=== PATIENT | female | born 1945 | race Caucasian/White ===

== ENCOUNTER 2016-04-07 08:00 | Outpatient (CLI) | payer MEDICARE, BC | END 2016-04-07 08:01 | disposition home or self-care (01) | DX: N28.9 Disorder of kidney and ureter, unspecified (principal); I10 Essential (primary) hypertension ==

== ENCOUNTER 2016-04-13 09:30 | Outpatient (CLI) | payer MEDICARE, BC | END 2016-04-13 23:59 | DX: R39.15 Urgency of urination (principal) ==

== ENCOUNTER 2016-06-19 08:57 | Outpatient (CLI) | payer MEDICARE, BC | END 2016-06-19 08:58 | disposition home or self-care (01) | DX: E11.9 Type 2 diabetes mellitus without complications (principal); D64.9 Anemia, unspecified ==

== ENCOUNTER 2017-03-06 07:13 | Day surgery (SDC) | payer MEDICARE, BC ==
[2017-03-06] MEDS ORDERED: LACTATED RINGERS 1,000 ML IV ONE (07:35)
[2017-03-06] MEDS ORDERED: fentaNYL 100 MCG/2 ML VIAL IVP ONE (08:30)
[2017-03-06] MEDS ORDERED: MIDAZOLAM 2 MG/2 ML VIAL IVP ONE (08:30)
[2017-03-06 09:26] VITALS: BP 103/44
== END 2017-03-06 07:14 | disposition home or self-care (01) ==
LOC: SDS 07:13
PROVIDERS: ATTEND Surgery
PROC: 0DBM8ZX Excision of Descending Colon, Via Natural or Artificial Opening Endoscopic, Diagnostic (ICD-10-PCS; principal; 2017-03-06 08:15)
DX: Z12.11 Encounter for screening for malignant neoplasm of colon (principal); D12.4 Benign neoplasm of descending colon; K51.40 Inflammatory polyps of colon without complications; I10 Essential (primary) hypertension; E11.9 Type 2 diabetes mellitus without complications; G47.30 Sleep apnea, unspecified; Z79.82 Long term (current) use of aspirin
CPT/HCPCS: 45380; J7120

== ENCOUNTER 2017-09-24 08:54 | Outpatient (CLI) | payer MEDICARE, BC ==
[2017-09-24 17:26] LABS: HGB - HEMOGLOBIN 11.9 g/dL (12.0-16.0); MEAN CORPUSCULAR HEMOGLOBIN 32.3 pg (27.0-31.0); MEAN CORPUSCULAR HGB CONC 33.5 g/dL (32.0-36.0); MEAN CORPUSCULAR VOLUME 96.3 fL (81.0-99.0); MEAN PLATELET VOLUME 7.5 fL (7.9-10.8); RED BLOOD COUNT 3.7 10^6/uL (4.20-5.40); RED CELL DISTRIBUTION WIDTH 15.6 % (12.0-15.0); WHITE BLOOD COUNT 5.5 x10^3/uL (4.8-10.8)
[2017-09-24 17:47] LABS: ALBUMIN 3.5 g/dL (3.2-5.5); ALKALINE PHOSPHATASE 50 IU/L (42-121); ALT ALANINE AMINOTRANSFERASE 27 IU/L (10-60); AST ASPARTATE AMINOTRANSFERASE 23 IU/L (10-42); BILIRUBIN,TOTAL 0.5 mg/dL (0.2-1.0); BUN - BLOOD UREA NITROGEN 22 mg/dL (6-20); CALCIUM 8.9 mg/dL (8.5-10.3); CARBON DIOXIDE - CO2 26 mmol/L (21-32); CHLORIDE 102 mmol/L (101-111); CHOL/HDL RATIO 2.2 (<4.4); CHOLESTEROL 144 mg/dL; CREATININE 1.2 mg/dL (0.4-1.0); GFR - MDRD 44 (>89); GLUCOSE 122 mg/dL (70-100); HDL CHOLESTEROL 66 mg/dL; LDL CHOLESTEROL,CALCULATED 56 mg/dL; LDL/HDL RATIO 0.8 (<4.4); SODIUM 137 mmol/L (135-145); TOTAL PROTEIN 6.9 g/dL (6.7-8.2); VLDL CHOLESTEROL 22 mg/dL
[2017-09-24 17:50] LABS: CREATININE,URINE 108.2 mg/dL; MICROALBUM/CREATININE RATIO,UR 9.2 ug/mg (<30.0)
[2017-09-24 17:53] LABS: PHOSPHORUS 3.2 mg/dL (2.5-4.6); URIC ACID 6.1 mg/dL (2.6-7.2)
[2017-09-24 17:57] LABS: THYROID STIMULATING HORMONE 2.85 uIU/mL (0.34-5.60)
[2017-09-24 17:59] LABS: FREE T4 (FREE THYROXINE) 1.11 ng/dL (0.58-1.64)
[2017-09-24 19:04] LABS: HB2 TOTAL 12.7 g/dL; HEMOGLOBIN A1C 0.66 g/dL; HEMOGLOBIN A1C % 6.9 % (4.6-6.2)
== END 2017-09-24 08:55 | disposition home or self-care (01) ==
LOC: LAB.S 08:54
PROVIDERS: ATTEND Internal Medicine Endocrinology, Diabetes & Metabolism
DX: E87.5 Hyperkalemia (principal); E03.9 Hypothyroidism, unspecified; I12.9 Hypertensive chronic kidney disease with stage 1 through stage 4 chronic kidney disease, or unspecified chronic kidney disease; N18.3 Chronic kidney disease, stage 3 (moderate); E11.22 Type 2 diabetes mellitus with diabetic chronic kidney disease; N28.1 Cyst of kidney, acquired; E11.49 Type 2 diabetes mellitus with other diabetic neurological complication
CPT/HCPCS: 36415; 80053; 80061; 82043; 82570; 83036; 83540; 83721; 83970; 84100; 84439; 84443; 84466; 84550; 85027

== ENCOUNTER 2018-01-20 11:38 | Emergency (ER) | payer MEDICARE, BC ==
[2018-01-20] MEDS ORDERED: GABAPENTIN 100 MG CAPSULE PO STA ×2 (12:21→16:23)
[2018-01-20] MEDS ORDERED: ACYCLOVIR 200 MG CAPSULE PO STA ×2 (12:21→16:23)
--- NOTE | 2018-01-20 12:24 | ED Physician Documentation ---
History of Present Illness - Stated complaint Stated Complaint: LF SHOULDER/HEAD PX - Chief complaint Chief Complaint: Ext Problem - History obtained from History obtained from: Patient, Family - History of Present Illness Timing: Other (About a week ago she developed dull pain in the left bicep and shoulder. She saw her physician 2 days ago for it and was referred to physical therapy but since then has had gradual onset and severe left neck and head pain that is very uncomfortable. It does not seem to respond to changes in position or motion but feels better with ice. It is hard to sleep because of it. 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: None : None HEENT: None Psych: Depression, Other Musculoskeletal: Osteoarthritis, Other Derm: None - Past Surgical History Past Surgical History: Yes General: Cholecystectomy, Appendectomy, Colonoscopy Ortho: Knee replacement, Shoulder arthroplasty /AUTO BODY STRAIGHTENER: section, Hysterectomy - Present Medications Home Medications: Ambulatory Orders Medication Instructions Recorded Confirmed Albuterol Sulfate [Proair Hfa] 8.5 gm IH Q4H PRN 03/06/14 01/20/18 Aspirin [Aspir 81] 81 mg PO DAILY 03/06/14 01/20/18 Cholecalciferol (Vitamin D3) 2,000 unit PO DAILY 03/06/14 01/20/18 [Vitamin D] Cyclobenzaprine [Flexeril] 10 mg PO QPM PRN 03/06/14 01/20/18 Estradiol 0.5 mg PO DAILY 03/06/14 01/20/18 Fluticasone Propionate [Flovent 50 mcg IH DAILY 03/06/14 01/20/18 Diskus] Insulin Glargine,Hum.rec.anlog 56 unit SQ DAILY 03/06/14 01/20/18 [Lantus] Levothyroxine [Synthroid] 125 mcg PO QDAC 03/06/14 01/20/18 Losartan [Cozaar] 50 mg PO DAILY 03/06/14 01/20/18 Metoprolol Succinate 50 mg PO DAILY 03/06/14 01/20/18 Multivit-Min/FA/Lycopene/Lut 1 tab PO BID 03/06/14 01/20/18 [Centrum Silver Tablet] Omeprazole [PriLOSEC] 20 mg PO BID 03/06/14 01/20/18 Tramadol HCl 50 mg PO DAILY 03/06/14 01/20/18 buPROPion HCl [Bupropion HCl Sr] 300 mg PO DAILY 03/06/14 01/20/18 Acyclovir [Zovirax] 400 mg ORAL TID PRN 03/10/14 01/20/18 Levomefolate/B6/B12/Algal Oil 1 each PO BID 09/10/15 01/20/18 [Metanx Capsule] Metformin HCl 2 tab PO QPM 09/10/15 01/20/18 Amoxicillin 500 mg PO ONCE 10/17/17 01/20/18 Atorvastatin [Lipitor] 10 mg PO DAILY 10/17/17 01/20/18 Chlorthalidone 25 mg PO DAILY 10/17/17 01/20/18 Clobetasol Propionate/Emoll 1 applic TOP BID 10/17/17 01/20/18 [Clobetasol Emulsion 0.05% Foam] Fluocinonide 20 ml TP BID 10/17/17 01/20/18 Insulin Lispro [Humalog Kwikpen 12 units SQ QDDINNER 10/17/17 01/20/18 U-100] Propylene Glycol [Systane Balance] 1 drops EACHEYE QID 10/17/17 01/20/18 Acyclovir 800 mg PO 5XD #50 tablet 01/20/18 Gabapentin 300 mg PO TID #30 capsule 01/20/18 Oxycodone HCl/Acetaminophen 1 - 2 each PO Q6H PRN #14 tablet 01/20/18 [Percocet 5-325 mg Tablet] - Allergies Allergies/Adverse Reactions: Allergies Allergy/AdvReac Type Severity Reaction Status Date / Time Iodinated Contrast- Oral and Allergy Severe Palpitation Verified 01/20/18 12:09 IV Dye s [Iodinated Contrast Media - IV Dye] minocycline Allergy Severe Photophobia Verified 01/20/18 12:09 shellfish derived Allergy Severe Palpitation Verified 01/20/18 12:09 s liraglutide [From Victoza] AdvReac Unknown Verified 01/20/18 12:09 Tape Allergy Intermediate Rash/Itchin Uncoded 01/20/18 12:09 g - Social History Does the pt smoke?: No Smoking Status: Never smoker Does the pt drink ETOH?: No Does the pt have substance abuse?: No - Immunizations Immunizations are current?: No - POLST Patient has POLST: No PD ED PE NORMAL - Vitals Vital signs reviewed: Yes - General General: Alert and oriented X 3, No acute distress - HEENT HEENT: PERRL, EOMI - Neck Neck: Supple, no meningeal sign, No bony TTP - Extremities Extremities: Other (She has equal sleeping car service attendant strength, thumb extension, interosseous strength and sensation throughout the upper extremities. She has a shingles- like rash in the medial left antecubital fossa down onto the forearm. 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 There is a shingles rash on the arm which likely causative. She describes weakness but I am not able to find any weakness on exam. She also has a history of spinal stenosis, we will check a CT to make sure there are 2 things going on. She is treated with gabapentin and acyclovir, steroids are held given her diabetic state. Her CT does show evidence of spinal stenosis. There is no acute compromise for this and she was given medications, still her steroids are held and she has a spine surgeon at [facility] ([place], [place]) with whom she will follow-up. Departure - Departure Disposition: 01 Home, Self Care Clinical Impression: Cervical stenosis of spinal canal Shingles Qualifiers: Herpes zoster complications: without complications Qualified Code(s): B02.9 - Zoster without complications Condition: Good Record reviewed to determine appropriate education?: Yes Instructions: ED Shingles, ED Cervical Radiculopathy Prescriptions: Acyclovir 800 mg PO 5XD #50 tablet Gabapentin 300 mg PO TID #30 capsule Oxycodone HCl/Acetaminophen [Percocet 5-325 mg Tablet] 1 - 2 each PO Q6H PRN #14 tablet PRN Reason: pain Comments: As discussed, it seems likely that your pain is a combination of shingles and spinal stenosis in your neck. I would recommend following up with a spine surgeon at [facility] ([place], [place]), take the copy of the CAT scan on CD with you for that follow-up appointment.
[2018-01-20] MEDS ORDERED: oxyCODONE 5 MG TABLET PO STA ×2 (14:07→16:23)
--- NOTE | 2018-01-20 16:15 | CT Report ---
Reason: neck pain Procedure Date: 01/20/2018 Accession Number: [id number] / [id number] Procedure: CT - Cervical Spine W/O CPT Code: FULL RESULT: EXAM: CT CERVICAL SPINE WITHOUT CONTRAST DATE: 01/20/2018 03:13 PM. HISTORY: Neck pain. COMPARISONS: None. TECHNIQUE: Thin-section axial images were acquired of the cervical spine without contrast. Post-processing: Coronal and sagittal reformats. Other: None. In accordance with CT protocol optimization, one or more of the following dose reduction techniques were utilized for this exam: automated exposure control, adjustment of mA and/or KV based on patient size, or use of iterative reconstructive technique. FINDINGS: Alignment: No scoliosis or spondylolisthesis. Bones: No acute fracture. Interspace Levels/Facets: Ossification of the posterior longitudinal ligament from C1-C3 causes mild to moderate central canal stenosis through C2-C3. There is moderate to severe spinal canal stenosis at C3-C4 in the left paracentral region due to the ossification and a disk bulge. Severe disk degeneration at C3-C4, C4-C5 and C5-C6, moderate at C6-C7. Moderate left and mild right foraminal stenosis at C3-C4. Endplate and uncovertebral proliferation at C4-C5 and C5-C6 causes severe bilateral foraminal stenosis at these levels and moderate canal stenosis. Musculature: Mild fatty atrophy. Other: There is a coarsely calcified left thyroid nodule. Mild to moderate consultations of the carotid bulbs. The lung apices are clear. IMPRESSION: Ossification of the posterior longitudinal ligament as described causes severe left paracentral canal stenosis at C3-C4. Severe bilateral foraminal stenosis at C4-C5 and C5-C6. RADIA
[2018-01-20] MEDS ORDERED: oxyCODONE/ACET 5/325 Prepack 4 PO STA (16:23)
[2018-01-20 16:28] VITALS: BP 134/62
== END 2018-01-20 16:45 | disposition home or self-care (01) ==
LOC: ED 11:38
DX: B02.9 Zoster without complications (principal); M48.02 Spinal stenosis, cervical region; I10 Essential (primary) hypertension; E11.9 Type 2 diabetes mellitus without complications; Z79.82 Long term (current) use of aspirin; Z79.4 Long term (current) use of insulin
CPT/HCPCS: 72125; 99283; A9270

== ENCOUNTER 2018-02-11 12:22 | Outpatient (CLI) | payer MEDICARE, BC ==
--- NOTE | 2018-02-11 13:12 | XRAY Report ---
Reason: CERVICAL SPINE STENOSIS Procedure Date: 02/11/2018 Accession Number: [id number] / [id number] Procedure: XR - Cervical Spine Complete CPT Code: FULL RESULT: EXAM: CERVICAL SPINE RADIOGRAPHY EXAM DATE: 02/11/2018 12:45 PM. CLINICAL HISTORY: CERVICAL SPINE STENOSIS. COMPARISONS: None. TECHNIQUE: 7 views. FINDINGS: Alignment: Normal. No spondylolisthesis or scoliosis. No significant abnormal motion on flexion and extension views. Bones: The cervical vertebral bodies and posterior elements are well-visualized from the skull base through C7-T1. No fractures or bone lesions. Disks: There is multilevel loss of disk space height, most pronounced at C3 through C7 with marginal osteophyte formation. Facets: Facets and the lateral masses demonstrate at least moderate degenerative changes throughout the cervical spine. Neural Foramina: There is significant narrowing of the osseous neural foramina on the right. Severe at C6-C7 and at least moderate at C4-C5, C5-C6. There is moderate neural foraminal narrowing on the left C5-C6 and C6-C7. Soft Tissues: Normal. No prevertebral soft tissue swelling. The visualized lung apices are clear. IMPRESSION: Degenerative changes and multilevel neural foraminal stenosis, most severe on the right at C6-C7. RADIA
== END 2018-02-11 12:23 | disposition home or self-care (01) ==
LOC: DI 12:22
PROVIDERS: ATTEND Nurse Practitioner Family
DX: M48.02 Spinal stenosis, cervical region (principal); M47.9 Spondylosis, unspecified; M50.31 Other cervical disc degeneration, high cervical region
CPT/HCPCS: 72050

== ENCOUNTER 2018-02-14 15:18 | Outpatient (CLI) | payer MEDICARE, BC | END 2018-02-14 15:19 | disposition home or self-care (01) | LOC: RT.S 15:18 | PROVIDERS: ATTEND Nurse Practitioner Family | DX: R00.2 Palpitations (principal) | CPT/HCPCS: 93005 ==

== ENCOUNTER 2018-03-04 08:36 | Outpatient (CLI) | payer MEDICARE, BC ==
[2018-03-04 11:15] LABS: ALBUMIN 3.8 g/dL (3.2-5.5); ALBUMIN/GLOBULIN RATIO 1.3 (1.0-2.2); ALKALINE PHOSPHATASE 48 IU/L (42-121); ALT ALANINE AMINOTRANSFERASE 28 IU/L (10-60); AST ASPARTATE AMINOTRANSFERASE 25 IU/L (10-42); BILIRUBIN,TOTAL 0.4 mg/dL (0.2-1.0); BUN - BLOOD UREA NITROGEN 21 mg/dL (6-20); CALCIUM 9.2 mg/dL (8.5-10.3); CARBON DIOXIDE - CO2 27 mmol/L (21-32); CHLORIDE 99 mmol/L (101-111); CHOL/HDL RATIO 2.5 (<4.4); CHOLESTEROL 156 mg/dL; CREATININE 1.1 mg/dL (0.4-1.0); GFR - MDRD 49 (>89); GLUCOSE 98 mg/dL (70-100); HDL CHOLESTEROL 62 mg/dL; LDL CHOLESTEROL,CALCULATED 55 mg/dL; LDL/HDL RATIO 0.9 (<4.4); SODIUM 136 mmol/L (135-145); TOTAL PROTEIN 6.8 g/dL (6.7-8.2); VLDL CHOLESTEROL 39 mg/dL
[2018-03-04 11:21] LABS: CREATININE,URINE 148.5 mg/dL; MICROALBUM/CREATININE RATIO,UR 6.1 ug/mg (<30.0); MICROALBUMIN,URINE 0.9 mg/dL (0-300.0)
[2018-03-04 12:01] LABS: HEMOGLOBIN A1C 0.65 g/dL; HEMOGLOBIN A1C % 7.1 % (4.6-6.2)
== END 2018-03-04 08:37 | disposition home or self-care (01) ==
LOC: LAB.F 08:36
PROVIDERS: ATTEND Internal Medicine Endocrinology, Diabetes & Metabolism
DX: E87.5 Hyperkalemia (principal); E16.0 Drug-induced hypoglycemia without coma; N18.3 Chronic kidney disease, stage 3 (moderate); I12.9 Hypertensive chronic kidney disease with stage 1 through stage 4 chronic kidney disease, or unspecified chronic kidney disease; E03.9 Hypothyroidism, unspecified; E11.49 Type 2 diabetes mellitus with other diabetic neurological complication; E11.22 Type 2 diabetes mellitus with diabetic chronic kidney disease
CPT/HCPCS: 36415; 80053; 80061; 82043; 82570; 83036; 83721; 84443

== ENCOUNTER 2018-03-22 11:57 | Outpatient (CLI) | payer MEDICARE, BC ==
[2018-03-22 17:51] LABS: BASOPHILS % (AUTO) 0.7 %; EOSINOPHILS # (AUTO) 0.3 10^3/uL (0.0-0.7); EOSINOPHILS % (AUTO) 4.8 %; HGB - HEMOGLOBIN 11.8 g/dL (12.0-16.0); LYMPHOCYTES # (AUTO) 1.2 10^3/uL (1.5-3.5); LYMPHOCYTES % (AUTO) 23.8 %; MEAN CORPUSCULAR HEMOGLOBIN 32.8 pg (27.0-31.0); MEAN CORPUSCULAR HGB CONC 32.7 g/dL (32.0-36.0); MEAN CORPUSCULAR VOLUME 100.4 fL (81.0-99.0); MEAN PLATELET VOLUME 7.3 fL (7.9-10.8); MONOCYTES # (AUTO) 0.6 10^3/uL (0.0-1.0); NEUTROPHILS # (AUTO) 3.1 10^3/uL (1.5-6.6); NEUTROPHILS % (AUTO) 59.7 %; PLT - PLATELET COUNT 330 10^3/uL (130-450); RED BLOOD COUNT 3.58 10^6/uL (4.20-5.40); RED CELL DISTRIBUTION WIDTH 15.7 % (12.0-15.0); WHITE BLOOD COUNT 5.2 x10^3/uL (4.8-10.8)
== END 2018-03-22 11:58 | disposition home or self-care (01) ==
LOC: LAB.F 11:57
PROVIDERS: ATTEND Nurse Practitioner Family
DX: R00.2 Palpitations (principal)
CPT/HCPCS: 36415; 85025

== ENCOUNTER 2018-03-25 08:00 | Outpatient (CLI) | payer MEDICARE, BC ==
[2018-03-25 20:12] LABS: FOLATE > 49.60 ng/mL (5.90 - >24.8)
== END 2018-03-25 23:59 | disposition home or self-care (01) ==
LOC: LAB.S 08:00
PROVIDERS: ATTEND Nurse Practitioner Family
DX: E11.9 Type 2 diabetes mellitus without complications (principal); D53.9 Nutritional anemia, unspecified
CPT/HCPCS: 36415; 82607; 82746; 82977

== ENCOUNTER 2018-06-19 10:37 | Emergency (ER) | payer MEDICARE, BC ==
--- NOTE | 2018-06-19 12:08 | ED Physician Documentation ---
History of Present Illness - Stated complaint Stated Complaint: MED OVERDOSE - Chief complaint Chief Complaint: General - History obtained from History obtained from: Patient, Family - History of Present Illness Timing: Enter time (914), Today - Additonal information Additional information: 72-year-old diabetic female who is on insulin went to give herself her Lantus this morning when she inadvertently gave herself Humalog instead. She states that she neil up the 50 units and was administering it when she realized that it was the wrong insulin and she stopped that about 20 units. She is mortified about the thought of going low and she tried to call the clinic they were unable to see her and she is come to the hospital for evaluation and treatment. She did have some honey on the way to the hospital she has tested her sugar wtih results in the 150 range. She has one prior episode of low blood sugar at night. She tests her sugar 4 times per day has a sliding scale of insulin and takes Lantus twice per day. She states that today she violated her protocol by not taking her Lantus in the bathroom the way she normally does before coming out into the kitchen. 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 : None HEENT: None Psych: Depression, Other Musculoskeletal: Osteoarthritis, Other Derm: None - Past Surgical History Past Surgical History: Yes General: Cholecystectomy, Appendectomy, Colonoscopy Ortho: Knee replacement, Shoulder arthroplasty /FEEDMOBILE DRIVER: section, Hysterectomy - Present Medications Home Medications: Ambulatory Orders Medication Instructions Recorded Confirmed Albuterol Sulfate [Proair Hfa] 8.5 gm IH Q4H PRN 03/06/14 01/20/18 Aspirin [Aspir 81] 81 mg PO DAILY 03/06/14 01/20/18 Cholecalciferol (Vitamin D3) 2,000 unit PO DAILY 03/06/14 01/20/18 [Vitamin D] Cyclobenzaprine [Flexeril] 10 mg PO QPM PRN 03/06/14 01/20/18 Estradiol 0.5 mg PO DAILY 03/06/14 01/20/18 Fluticasone Propionate [Flovent 50 mcg IH DAILY 03/06/14 01/20/18 Diskus] Insulin Glargine,Hum.rec.anlog 56 unit SQ DAILY 03/06/14 01/20/18 [Lantus] Levothyroxine [Synthroid] 125 mcg PO QDAC 03/06/14 01/20/18 Losartan [Cozaar] 50 mg PO DAILY 03/06/14 01/20/18 Metoprolol Succinate 50 mg PO DAILY 03/06/14 01/20/18 Multivit-Min/FA/Lycopene/Lut 1 tab PO BID 03/06/14 01/20/18 [Centrum Silver Tablet] Omeprazole [PriLOSEC] 20 mg PO BID 03/06/14 01/20/18 Tramadol HCl 50 mg PO DAILY 03/06/14 01/20/18 buPROPion HCl [Bupropion HCl Sr] 300 mg PO DAILY 03/06/14 01/20/18 Acyclovir [Zovirax] 400 mg ORAL TID PRN 03/10/14 01/20/18 Levomefolate/B6/B12/Algal Oil 1 each PO BID 09/10/15 01/20/18 [Metanx Capsule] Metformin HCl 2 tab PO QPM 09/10/15 01/20/18 Amoxicillin 500 mg PO ONCE 10/17/17 01/20/18 Atorvastatin [Lipitor] 10 mg PO DAILY 10/17/17 01/20/18 Chlorthalidone 25 mg PO DAILY 10/17/17 01/20/18 Clobetasol Propionate/Emoll 1 applic TOP BID 10/17/17 01/20/18 [Clobetasol Emulsion 0.05% Foam] Fluocinonide 20 ml TP BID 10/17/17 01/20/18 Insulin Lispro [Humalog Kwikpen 12 units SQ QDDINNER 10/17/17 01/20/18 U-100] Propylene Glycol [Systane Balance] 1 drops EACHEYE QID 10/17/17 01/20/18 Acyclovir 800 mg PO 5XD #50 tablet 11/04/18 Gabapentin 300 mg PO TID #30 capsule 01/20/18 Oxycodone HCl/Acetaminophen 1 - 2 each PO Q6H PRN #14 tablet 01/20/18 [Percocet 5-325 mg Tablet] - Allergies Allergies/Adverse Reactions: Allergies Allergy/AdvReac Type Severity Reaction Status Date / Time Iodinated Contrast- Oral and Allergy Severe Palpitation Verified 06/19/18 10:45 IV Dye s [Iodinated Contrast Media - IV Dye] minocycline Allergy Severe Photophobia Verified 06/19/18 10:45 shellfish derived Allergy Severe Palpitation Verified 06/19/18 10:45 s liraglutide [From Victoza] AdvReac Unknown Verified 06/19/18 10:45 Tape Allergy Intermediate Rash/Itchin Uncoded 06/19/18 10:45 g - Social History Does the pt smoke?: No Smoking Status: Never smoker Does the pt drink ETOH?: No Does the pt have substance abuse?: No - Immunizations Immunizations are current?: No - POLST Patient has POLST: No PD ED PE NORMAL - Vitals Vital signs reviewed: Yes (hypertensive mild ) - General General: Alert and oriented X 3, No acute distress, Well developed/nourished - HEENT HEENT: Atraumatic, PERRL, EOMI - Respiratory Respiratory: No respiratory distress - Derm Derm: Normal color, Warm and dry, No rash - Extremities Extremities: No deformity, No edema - Neuro Neuro: Alert and oriented X 3, bag sorter 2-12 intact, No motor deficit, No sensory deficit, Normal speech Eye Opening: Spontaneous Motor: Obeys Commands Verbal: Oriented GCS Score: 15 - Psych Psych: Normal mood, Normal affect Results - Vitals Vitals: Vital Signs - 24 hr 06/19/18 10:39 Temperature 36.7 C Heart Rate 85 Respiratory 16 Rate Blood Pressure 150/77 H O2 Saturation 100 Oxygen O2 Source Room air - Labs Labs: Laboratory Tests 06/19/18 06/19/18 11:35 12:24 POC Whole Bld Glucose 153 H 130 H PD MEDICAL DECISION MAKING - ED course Complexity details: considered differential, d/w patient, d/w family ED course: 72-year-old female with an inadvertent administration of regular insulin and an excessive amount is monitored for blood sugar changes and she does have a that can stay with her continuously to monitor her for signs of hypo- glycemia. Departure - Departure Disposition: Home, Self Care Clinical Impression: Insulin overdose Qualifiers: Encounter type: initial encounter Injury intent: accidental or unintentional Qualified Code(s): T38.3X1A - Poisoning by insulin and oral hypoglycemic [antidiabetic] drugs, accidental (unintentional), initial encounter Instructions: ED Diabetes Hypoglycemia Insulin React, ED Overdose Accidental Follow-Up: Ekta Carrion ARNP [Primary Care Provider] -
[2018-06-19 13:07] VITALS: BP 158/82
== END 2018-06-19 13:00 | disposition home or self-care (01) ==
LOC: ED 10:37
DX: T38.3X1A Poisoning by insulin and oral hypoglycemic [antidiabetic] drugs, accidental (unintentional), initial encounter (principal); E11.9 Type 2 diabetes mellitus without complications; I10 Essential (primary) hypertension; E03.9 Hypothyroidism, unspecified; E78.01 Familial hypercholesterolemia; Z79.82 Long term (current) use of aspirin; Z96.659 Presence of unspecified artificial knee joint
CPT/HCPCS: 99283

== ENCOUNTER 2018-06-24 09:18 | Outpatient (CLI) | payer MEDICARE, BC ==
[2018-06-24 18:35] LABS: ALBUMIN 3.8 g/dL (3.2-5.5); ALBUMIN/GLOBULIN RATIO 1.2 (1.0-2.2); ALKALINE PHOSPHATASE 49 IU/L (42-121); ALT ALANINE AMINOTRANSFERASE 25 IU/L (10-60); AST ASPARTATE AMINOTRANSFERASE 22 IU/L (10-42); BILIRUBIN,TOTAL 0.6 mg/dL (0.2-1.0); BUN - BLOOD UREA NITROGEN 24 mg/dL (6-20); CALCIUM 9.6 mg/dL (8.5-10.3); CARBON DIOXIDE - CO2 30 mmol/L (21-32); CHLORIDE 96 mmol/L (101-111); CHOL/HDL RATIO 2.5 (<4.4); CHOLESTEROL 145 mg/dL; CREATININE 1.1 mg/dL (0.4-1.0); GFR - MDRD 49 (>89); GLUCOSE 122 mg/dL (70-100); HDL CHOLESTEROL 58 mg/dL; LDL CHOLESTEROL,CALCULATED 45 mg/dL; LDL/HDL RATIO 0.8 (<4.4); SODIUM 136 mmol/L (135-145); TOTAL PROTEIN 6.9 g/dL (6.7-8.2); VLDL CHOLESTEROL 42 mg/dL
[2018-06-24 18:36] LABS: HB2 TOTAL 13.1 g/dL; HEMOGLOBIN A1C 0.67 g/dL; HEMOGLOBIN A1C % 6.8 % (4.6-6.2)
[2018-06-24 18:37] LABS: CREATININE,URINE 104.7 mg/dL; MICROALBUM/CREATININE RATIO,UR 9.6 ug/mg (<30.0)
== END 2018-06-24 09:19 | disposition home or self-care (01) ==
LOC: LAB.F 09:18
PROVIDERS: ATTEND Internal Medicine Endocrinology, Diabetes & Metabolism
DX: E87.5 Hyperkalemia (principal); E16.0 Drug-induced hypoglycemia without coma; N18.3 Chronic kidney disease, stage 3 (moderate); I12.9 Hypertensive chronic kidney disease with stage 1 through stage 4 chronic kidney disease, or unspecified chronic kidney disease; E03.9 Hypothyroidism, unspecified; E11.49 Type 2 diabetes mellitus with other diabetic neurological complication; T38.3X5A Adverse effect of insulin and oral hypoglycemic [antidiabetic] drugs, initial encounter
CPT/HCPCS: 36415; 80053; 80061; 82043; 82570; 83036; 83721; 84443

== ENCOUNTER 2018-10-23 08:17 | Outpatient (CLI) | payer MEDICARE, BC ==
[2018-10-23 10:52] LABS: CREATININE,URINE 199.9 mg/dL; MICROALBUM/CREATININE RATIO,UR 6.5 ug/mg (<30.0); MICROALBUMIN,URINE 1.3 mg/dL (0-300.0)
[2018-10-23 10:56] LABS: ALBUMIN 3.6 g/dL (3.2-5.5); ALBUMIN/GLOBULIN RATIO 1.1 (1.0-2.2); ALKALINE PHOSPHATASE 50 IU/L (42-121); ALT ALANINE AMINOTRANSFERASE 25 IU/L (10-60); AST ASPARTATE AMINOTRANSFERASE 20 IU/L (10-42); BILIRUBIN,TOTAL 0.5 mg/dL (0.2-1.0); BUN - BLOOD UREA NITROGEN 28 mg/dL (6-20); CALCIUM 8.7 mg/dL (8.5-10.3); CARBON DIOXIDE - CO2 26 mmol/L (21-32); CHLORIDE 100 mmol/L (101-111); CHOL/HDL RATIO 2.6 (<4.4); CHOLESTEROL 133 mg/dL; CREATININE 1.1 mg/dL (0.4-1.0); GFR - MDRD 49 (>89); GLUCOSE 113 mg/dL (70-100); HDL CHOLESTEROL 52 mg/dL; LDL CHOLESTEROL,CALCULATED 51 mg/dL; SODIUM 137 mmol/L (135-145); TOTAL PROTEIN 6.8 g/dL (6.7-8.2); VLDL CHOLESTEROL 30 mg/dL
[2018-10-23 10:59] LABS: HB2 TOTAL 12.8 g/dL; HEMOGLOBIN A1C 0.7 g/dL; HEMOGLOBIN A1C % 7.2 % (4.6-6.2)
== END 2018-10-23 08:18 | disposition home or self-care (01) ==
LOC: LAB.S 08:17
PROVIDERS: ATTEND Internal Medicine Endocrinology, Diabetes & Metabolism
DX: E87.5 Hyperkalemia (principal); E16.0 Drug-induced hypoglycemia without coma; E11.65 Type 2 diabetes mellitus with hyperglycemia; E11.22 Type 2 diabetes mellitus with diabetic chronic kidney disease; N18.3 Chronic kidney disease, stage 3 (moderate); E03.9 Hypothyroidism, unspecified
CPT/HCPCS: 36415; 80053; 80061; 82043; 82570; 83036; 83721; 84443

== ENCOUNTER 2018-11-25 10:44 | Outpatient (CLI) | payer MEDICARE, BC ==
[2018-11-25 16:55] VITALS: BP 110/60
--- NOTE | 2018-11-25 16:55 | SLEEP CARE CONSULTATION ---
Information from patient questionnaire entered by Hyacinth Martini. I have reviewed and concur with the information entered by Hyacinth Martini. This document represents the service I personally performed and the decisions made by me, Jarrett Deluca MD, [facility]. 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) Duration of Symptoms: 03/2005 Usual bedtime: 10:30 PM - 12:30 AM Time it takes to fall asleep: 5 MINUTES Snores at night: Yes Observed to quit breathing while asleep: No Sleeps alone due to snoring: No Number of times waking at night: 1-3 Reasons for waking at night: reports: Pain, Bathroom Toss, Turn, or Twitch while sleeping: Yes Recalls having dreams: Yes Usually gets out of bed at: 7:30-9:30 AM Feels refreshed in the morning: Yes (ABOUT 50-75% OF THE TIME) Morning headache: No Sleepy or fatigued during the day: Yes (OCCASIONALY) Ever fallen asleep while driving: Yes Takes day naps: No Prior sleep studies: Yes Year and Where: 1997 [facility] Additional HPI information: I had the pleasure of seeing Ms. Barnard today regarding obstructive sleep apnea- hypopnea. As you know, she is a 72 year old lady who was diagnosed with the sleep-disordered breathing at [facility] in 1997. The AHI was 83.5. She was prescribed a CPAP device set at 9 cmH2O. She continues to use every night and all night. The compliance data show usage in 179 out of the past 180 nights, averaging 7.5 hours a night. The residual AHI is 2.5 and average air leak is 0.5 L/minute. She wears a nasal mask. She does not use the heated humidifier. She gets his supplies from [employer]. She finds the treatment beneficial. CPAP Compliance Data - Data Reviewed with Patient Average duration of nightly device use: 7H 32M Compliance rate %: 97 Current pressure setting (cmH2O): 9 Subjective Initial [place] Sleepiness Scale score: 14 Past Medical History Past Medical History: reports: Hypertension, Diabetes, Arthritis, Insulin resistance, Hypothyroidism, Anemia, Asthma, Depression, GERD Social History The patient's occupation is RETIRED. Patient is and lives in [place]. Have you smoked in the past 12 months: Yes Cigarettes per day (20/pack): 20 (LESS THAN 1 PACK/DAY) Years of smokin Quit date: 1976 Smoking Pack Years: 10.0 Allergies and Home Medications Drug allergies reviewed: Yes Home medication list reviewed: Yes Review of Systems Weight gain over past 5 years: 18-20 Weight loss over past 5 years: 18-20 Cardiovascular: reports: high blood pressure (RESOLVED WITH MEDICATION), irregular heart rate or pulse (OCCASIONALY), leg or foot swelling (OCCASIONALY) Gastrointestinal: reports: heartburn, difficulty swallowing, diarrhea Urinary: denies: incontinence, frequency, urgency, impotence, other Neurological: denies: headaches, seizure, head trauma, disorientation, speech dysfunction, gait or balance problems, fainting or unconsciousness, other Psychiatric: reports: depression (ON MEDS FOR YEARS) Ear/Nose/Throat: reports: nasal congestion, tonsillectomy, wisdom teeth removed Endocrine: reports: thyroid disease, sluggishness, too hot or cold Musculoskeletal: reports: joint pain, neck pain, back pain, muscle pain or cramping (*CRAMPING) Immunologic: reports: sneezing, allergies to food or environment Physical Exam Vital signs obtained and entered by: Dr. Deluca Blood Pressure: 110/60 Cuff size: long Heart Rate: 74 O2 Saturation: 99 Height: 5 ft 4 in Weight (kg): 229 lb Body Mass Index: 39.3 BMI Classification: Class 2 Neck circumference: 16.5 Mood/affect: Normal HEENT: No craniofacial malformation Nostrils: patent to airflow Turbinates: normal Septum: midline Mouth and throat: narrow oropharynx Soft palate: long Hard palate: normal Uvula: normal Uvula visualization: 25% Mallampati Class III Tongue: normal in size Tonsils: absent bilaterally Chin and jaw: normal size and position Neck: normal w/o lymphadenopathy or thyromegaly Heart: regular rate and rhythm Lungs: clear bilaterally Abdomen: soft Extremities: no edema or clubbing Neurologic: intact Impression and Plan IMPRESSION: 1. Obstructive Sleep Apnea-Hypopnea Syndrome, very severe, as previously diagnosed 21 years ago. The patient has had good treatment compliance. The current pressure setting appears effective and comfortable. Her nasal mask fits well. The patient experiences improvement on the treatment. Narrow oropharynx and obesity are common predisposing factors for obstructive sleep apnea-hypopnea syndrome. Pathophysiology of sleep-disordered breathing was discussed. Because the CPAP is now older than the useful life of 5 years, I will order the patient a new one and make it an autoCPAP set between 5 and 10 cmH2O. Plan: 1. Prescription made for an autoCPAP, heated humidifier, and related supplies. 2. Try the new ResMed N30i mask. 3. Try to lose weight. 4. Return for follow up after one month on the new machine. I spent 100% of this 15 minute visit face to face with the patient with greater than 50% of this was spent time counseling the patient and coordination of care.
== END 2018-11-25 10:45 | disposition home or self-care (01) ==
LOC: SC 10:44
PROVIDERS: ATTEND Internal Medicine Pulmonary Disease
DX: G47.33 Obstructive sleep apnea (adult) (pediatric) (principal)
CPT/HCPCS: 99203; G0463; 99212

== ENCOUNTER 2019-02-25 08:22 | Outpatient (CLI) | payer MEDICARE, BC ==
[2019-02-25 11:15] LABS: ALBUMIN 3.8 g/dL (3.2-5.5); ALBUMIN/GLOBULIN RATIO 1.2 (1.0-2.2); ALKALINE PHOSPHATASE 53 IU/L (42-121); ALT ALANINE AMINOTRANSFERASE 30 IU/L (10-60); AST ASPARTATE AMINOTRANSFERASE 21 IU/L (10-42); BILIRUBIN,TOTAL 0.4 mg/dL (0.2-1.0); BUN - BLOOD UREA NITROGEN 29 mg/dL (6-20); CALCIUM 9.6 mg/dL (8.5-10.3); CARBON DIOXIDE - CO2 29 mmol/L (21-32); CHLORIDE 98 mmol/L (101-111); CHOL/HDL RATIO 2.8 (<4.4); CHOLESTEROL 154 mg/dL; CREATININE 1.3 mg/dL (0.4-1.0); GFR - MDRD 40 (>89); GLUCOSE 117 mg/dL (70-100); HDL CHOLESTEROL 56 mg/dL; LDL CHOLESTEROL,CALCULATED 54 mg/dL; SODIUM 138 mmol/L (135-145); TOTAL PROTEIN 7.1 g/dL (6.7-8.2); VLDL CHOLESTEROL 44 mg/dL
[2019-02-25 11:38] LABS: CREATININE,URINE 94.6 mg/dL; MICROALBUM/CREATININE RATIO,UR 5.3 ug/mg (<30.0); MICROALBUMIN,URINE 0.5 mg/dL (0-300.0)
[2019-02-25 12:55] LABS: HB2 TOTAL 12.9 g/dL; HEMOGLOBIN A1C 0.74 g/dL; HEMOGLOBIN A1C % 7.4 % (4.6-6.2)
== END 2019-02-25 08:23 | disposition home or self-care (01) ==
LOC: LAB.S 08:22
PROVIDERS: ATTEND Internal Medicine Endocrinology, Diabetes & Metabolism
DX: K52.1 Toxic gastroenteritis and colitis (principal); E16.0 Drug-induced hypoglycemia without coma; E11.22 Type 2 diabetes mellitus with diabetic chronic kidney disease; N18.3 Chronic kidney disease, stage 3 (moderate); E11.65 Type 2 diabetes mellitus with hyperglycemia; E11.49 Type 2 diabetes mellitus with other diabetic neurological complication; E03.9 Hypothyroidism, unspecified
CPT/HCPCS: 36415; 80053; 80061; 82043; 82570; 83036; 83721; 84443

== ENCOUNTER 2019-03-25 12:48 | Outpatient (CLI) | payer MEDICARE, BC ==
--- NOTE | 2019-03-25 13:38 | SLEEP CARE CONSULTATION ---
Information from patient questionnaire entered by Marley Lin. I have reviewed and concur with the information entered by Marley Lin. This document represents the service I personally performed and the decisions made by me, Julianna Pantoja, RN, MSN, EXECUTIVE RECEPTIONIST. History of Present Illness Previous diagnosis: Very Severe, Obstructive Sleep Apnea-Hypopnea Syndrome AHI: 83.4 Reason for follow up: first compliance after device update Equipment type: CPAP Equipment obtained from: [employer] Mask style: Nasal (True Blue is no longer carried by [employer]) Mask brand: Respironics Backup mask available: Yes Last cushion change: about 3 weeks ago CPAP Compliance Data - Data Reviewed with Patient Average duration of nightly device use: 8.4 Compliance rate %: 100 Current pressure setting (cmH2O): 5-10 Humidity settin Heated hose settin Average residual AHI: 3.0 Average large leak: 2 min 18 sec Subjective Patient concerns: reports: mask discomfort (headgear stretched out and causes nasal bridge soreness. ), condensation in mask/hose (intermittent), nasal congestion (seasonal ), dry mouth, nose, throat (intermittent nasal dryness and uses saline nasal spray as needed when allergies ). denies: aerophagia, air blowing in eyes, mask leak noise, epistaxis Observed to snore while using device: No Current pressure setting perceived as: comfortable On therapy, patient: reports: sleeping better, awakening more refreshed, being more awake and alert during the day, more rested overall. 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 Obstructive Sleep Apnea-Hypopnea Syndrome, very severe, with good treatment compliance and good apnea control. On CPAP therapy, the patient has better sleep quality and is more rested overall. A mask refitting was ordered in February as [facility] RT requested as patients mask style is no longer carried by [facility]. Patient was shown similar mask styles and seemed to like the Wisp nasal mask. Thus I will again order a mask refitting with patient preference for this style to try. She is to contact [facility] to schedule an appointment. The new mask should also reduce nasal bridge tenderness now noted from old mask using. To reduce condensation, she was advised to increase heated hose as shown on sample device. Printed instructions given for how to change settings and written rationale for changing. For nasal congestion, she is to continue using saline nasal spray prior to CPAP to wash off allergens and clear nasal passages. She can also increase humidity. If still having significant nasal congestion, she is to follow up with PCP for further evaluation such as going back to using Flonase nasal spray. For concerns about EKG changes and 911 guidelines.She is awaiting appointment with preschool director to discuss. I gave her a 911 reference card and advised of rationale to call if needed. Patient's apnea severity and rationale for treatment to reduce apnea, improve sleep quality and reduce cardiovascular and cerebrovascular events was reviewed. I also reviewed the benefit of consistent device use of CPAP for hypertension, diabetes, gastric reflux, depression/anxiety. She would also like to lose more weight and her autoCPAP pressure is at top range so will accomodate weight loss. She is advised to work with manager talent re diet guidelines to lose weight because of her diabetes. As she loses weight her CPAP pressure requirements will reduce, symptoms to report for CPAP pressure adjustment discussed. * Continue autoCPAP pressure at 5-10 cmH2O * Wisp nasal mask prescription * Implement methods to reduce condensation and nasal congestion. * Notify me if snoring with mask or feeling that the pressure is too much or too little * Continue to lose weight - contact manager talent for diet guidelines. * Call this office if any problems using CPAP * Return for follow up in 1 year , or sooner if concerns arise Time Spent with Patient (minutes): 35 I spent 100% of this visit face to face with the patient with greater than 50% of this was spent time counseling the patient and coordination of care.
[2019-03-25 13:39] VITALS: BP 134/68
== END 2019-03-25 12:49 | disposition home or self-care (01) ==
LOC: SC 12:48
PROVIDERS: ATTEND Nurse Practitioner Family
DX: G47.33 Obstructive sleep apnea (adult) (pediatric) (principal); E66.9 Obesity, unspecified; Z68.38 Body mass index [BMI] 38.0-38.9, adult
CPT/HCPCS: 99214; G0463; 99212

== ENCOUNTER 2019-12-23 10:11 | Outpatient (CLI) | payer MEDICARE, BC | END 2019-12-23 10:12 | disposition home or self-care (01) | LOC: COV 10:11 | PROVIDERS: ATTEND Family Medicine | DX: R05 Cough (principal); R06.02 Shortness of breath; R53.83 Other fatigue; R68.83 Chills (without fever); J02.9 Acute pharyngitis, unspecified; R19.7 Diarrhea, unspecified; R09.81 Nasal congestion; R11.0 Nausea; Z20.828 Contact with and (suspected) exposure to other viral communicable diseases ==

== ENCOUNTER 2020-06-09 12:47 | Outpatient (CLI) | payer MEDICARE, BC ==
--- NOTE | 2020-06-09 13:22 | SLEEP CARE CONSULTATION ---
Information from patient questionnaire entered by Marley Lin. I have reviewed and concur with the information entered by Marley Lin. This document represents the service I personally performed and the decisions made by , Carolyn Narayanan ARNP. History of Present Illness Service Date and Time: 06/09/2020 1247 Previous diagnosis: Very Severe, Obstructive Sleep Apnea-Hypopnea Syndrome AHI: 83.4 (in 1997) Reason for follow up: annual (last seen 03/2019) Equipment type: CPAP Equipment obtained from: [email or web address] (getting supplies as needed; sometimes have to wait for supplies) Mask style: Nasal (True Blue is no longer carried by [employer]; over the nose) Backup mask available: Yes (old mask) Last cushion change: yesterday Prior sleep studies: Yes Year and Where: 1997 - [facility] HPI additional information: RODNEY YBARRA was diagnosed to have very severe, AHI 83.4, obstructive sleep apnea-hypopnea syndrome and returned today for CPAP therapy annual follow-up. CPAP Compliance Data - Data Reviewed with Patient Average duration of nightly device use: 7 hr 31 min Compliance rate %: 99.4 (180 days) Current pressure setting (cmH2O): 5-10 Humidity settin Heated hose settin Average residual AHI: 2.9 Average large leak: 55 sec Subjective Patient concerns: reports: mask discomfort (size is needed in between but able to use okay), condensation in mask/hose, nasal congestion. denies: aerophagia, air blowing in eyes, mask leak noise, dry mouth, nose, throat, epistaxis, other Observed to snore while using device: No (occasionlly, doesn't wake her up) Current pressure setting perceived as: comfortable On therapy, patient: reports: sleeping better, awakening more refreshed, being more awake and alert during the day, more rested overall. denies: drowsiness while driving Initial [place] Sleepiness Scale score: 6 (in 2011) Current [place] Sleepiness Scale score: 12 Allergies and Home Medications Home medication list reviewed: Yes (no changes; see list scanned) Review of Systems Review of systems same as previous: Yes (no changes) Physical Exam Heart Rate: 75 O2 Saturation: 97 Height: 5 ft 4 in Weight: 225 lb Weight change since last visit: 1 lb Body Mass Index: 38.6 BMI Classification: Obese Impression and Plan 1. Obstructive Sleep Apnea-Hypopnea Syndrome, very severe, with excellent treatment compliance and good apnea control. On CPAP therapy, the patient has better sleep quality and is more rested overall. She has been having difficulty with nasal congestion. She has been using flonase at night and her humidity but she gets some condensation in the hose. Nasal congestion can be reduced with increasing the CPAP humidity. The heated hose can be adjusted higher if condensation with higher humidity setting. Saline nasal spray can also be used prior to CPAP to clear nasal secretions and wash off any nasal allergens to facilitate nasal breathing. In addition, a steamy shower before bed will often assist nasal drainage. She has been more sedentary this year due to Covid pandemic. She is now trying to increase her activity level, do some elliptical exercise and gardening. Currently the patients BMI is 38.6. Obesity increases the risk of apnea, CPAP pressure requirements and overall health risks especially cardiovascular and diabetes. Thus patient is advised to lose weight. The patient's CPAP pressure range should accommodate some weight loss. Symptoms to report for additional pressure adjustment discussed. Patient's apnea severity and rationale for treatment to reduce apnea, improve sleep quality and reduce cardiovascular and cerebrovascular events was reviewed. I also reviewed the benefit of consistent device use of CPAP for hypertension, diabetes, gastric reflux, and depression/anxiety. * Continue auto CPAP pressure at 5-10 cmH2O * Notify me if snoring with mask or feeling that the pressure is too much or too little * Attempt to lose weight * Call this office if any problems using CPAP * Return for follow up in 1 year, or sooner if concerns arise Counseling Topics: Spare mask, Weight loss health impact, Activity level Visit Type: In Office Time Spent with Patient (minutes): 19 Provider Statement: I spent 100% of the Face to Face Visit with the patient with greater than 50% spent counseling the patient and coordination of care.
== END 2020-06-09 12:48 | disposition home or self-care (01) ==
LOC: SC 12:47
PROVIDERS: ATTEND Nurse Practitioner Family
DX: G47.33 Obstructive sleep apnea (adult) (pediatric) (principal); E66.9 Obesity, unspecified; Z68.38 Body mass index [BMI] 38.0-38.9, adult
CPT/HCPCS: 99213; G0463; 99212

== ENCOUNTER 2020-08-12 08:40 | Outpatient (CLI) | payer MEDICARE, BC ==
[2020-08-12 15:11] LABS: ALBUMIN/GLOBULIN RATIO 1.3 (1.0-2.2); ALKALINE PHOSPHATASE 62 IU/L (42-121); ALT ALANINE AMINOTRANSFERASE 30 IU/L (10-60); AST ASPARTATE AMINOTRANSFERASE 21 IU/L (10-42); BILIRUBIN,TOTAL 0.6 mg/dL (0.2-1.0); BUN - BLOOD UREA NITROGEN 29 mg/dL (6-20); CALCIUM 9.7 mg/dL (8.5-10.3); CARBON DIOXIDE - CO2 27 mmol/L (21-32); CHLORIDE 97 mmol/L (101-111); CHOL/HDL RATIO 2.5 (<4.4); CHOLESTEROL 156 mg/dL; CREATININE 1.3 mg/dL (0.4-1.0); GFR - MDRD 40 (>89); GLUCOSE 134 mg/dL (70-100); HDL CHOLESTEROL 63 mg/dL; LDL CHOLESTEROL,CALCULATED 61 mg/dL; POTASSIUM 3.5 mmol/L (3.5-5.0); SODIUM 134 mmol/L (135-145); TOTAL PROTEIN 7.2 g/dL (6.7-8.2); TRIGLYCERIDES 158 mg/dL; VLDL CHOLESTEROL 32 mg/dL
[2020-08-12 15:22] LABS: THYROID STIMULATING HORMONE 1.08 uIU/mL (0.34-5.60)
[2020-08-12 15:24] LABS: FREE T4 (FREE THYROXINE) 1.16 ng/dL (0.58-1.64)
[2020-08-12 15:38] LABS: CREATININE,URINE 117.7 mg/dL; MICROALBUM/CREATININE RATIO,UR 8.5 ug/mg (<30.0)
[2020-08-12 20:19] LABS: ESTIMATED AVERAGE GLUCOSE 146 mg/dL (70-100); HEMOGLOBIN A1c% 6.7 % (4.27-6.07)
== END 2020-08-12 08:41 | disposition home or self-care (01) ==
LOC: LAB.S 08:40
PROVIDERS: ATTEND Internal Medicine Endocrinology, Diabetes & Metabolism
DX: E87.5 Hyperkalemia (principal); R80.9 Proteinuria, unspecified; T38.3X5A Adverse effect of insulin and oral hypoglycemic [antidiabetic] drugs, initial encounter; N18.31 Chronic kidney disease, stage 3a; E03.9 Hypothyroidism, unspecified
CPT/HCPCS: 36415; 80053; 80061; 82043; 82570; 83036; 83721; 84439; 84443

== ENCOUNTER 2020-09-16 10:59 | Outpatient (CLI) | payer MEDICARE, BC ==
[2020-09-16 14:37] LABS: HCT - HEMATOCRIT 37.3 % (37.0-47.0); HGB - HEMOGLOBIN 12.3 g/dL (12.0-16.0); MEAN CORPUSCULAR HEMOGLOBIN 32.2 pg (27.0-31.0); MEAN CORPUSCULAR VOLUME 97.6 fL (81.0-99.0); MEAN PLATELET VOLUME 9.8 fL (7.9-10.8); RED BLOOD COUNT 3.82 10^6/uL (4.20-5.40); RED CELL DISTRIBUTION WIDTH 14.4 % (12.0-15.0); WHITE BLOOD COUNT 5.7 x10^3/uL (4.8-10.8)
[2020-09-16 15:05] LABS: CREATININE,URINE 25.4 mg/dL; MICROALBUM/CREATININE RATIO,UR 15.7 ug/mg (<30.0); MICROALBUMIN,URINE 0.4 mg/dL (0-300.0)
[2020-09-16 15:08] LABS: CALCIUM 9.5 mg/dL (8.5-10.3); CREATININE 1.2 mg/dL (0.4-1.0); PHOSPHORUS 4.7 mg/dL (2.5-4.6); POTASSIUM 4.2 mmol/L (3.5-5.0); URIC ACID 5.7 mg/dL (2.6-7.2)
== END 2020-09-16 11:00 | disposition home or self-care (01) ==
LOC: LAB.S 10:59
PROVIDERS: ATTEND Internal Medicine Nephrology
DX: I12.9 Hypertensive chronic kidney disease with stage 1 through stage 4 chronic kidney disease, or unspecified chronic kidney disease (principal); N18.31 Chronic kidney disease, stage 3a; D63.1 Anemia in chronic kidney disease; E87.5 Hyperkalemia; N28.1 Cyst of kidney, acquired; R80.9 Proteinuria, unspecified
CPT/HCPCS: 36415; 80069; 82043; 82570; 83970; 84550; 85027

== ENCOUNTER 2021-02-09 10:57 | Outpatient (CLI) | payer MEDICARE, BC ==
[2021-02-09 15:17] LABS: HCT - HEMATOCRIT 37.2 % (37.0-47.0); HGB - HEMOGLOBIN 12.3 g/dL (12.0-16.0); MEAN CORPUSCULAR HEMOGLOBIN 31.7 pg (27.0-31.0); MEAN CORPUSCULAR HGB CONC 33.1 g/dL (32.0-36.0); MEAN CORPUSCULAR VOLUME 95.9 fL (81.0-99.0); MEAN PLATELET VOLUME 9.5 fL (7.9-10.8); RED BLOOD COUNT 3.88 10^6/uL (4.20-5.40)
[2021-02-09 15:34] LABS: CALCIUM 9.1 mg/dL (8.5-10.3); CREATININE 1.3 mg/dL (0.4-1.0); PHOSPHORUS 4.3 mg/dL (2.5-4.6); POTASSIUM 3.3 mmol/L (3.5-5.0); URIC ACID 6.9 mg/dL (2.6-7.2)
[2021-02-09 15:38] LABS: CREATININE,URINE 177.6 mg/dL; MICROALBUM/CREATININE RATIO,UR 7.3 ug/mg (<30.0); MICROALBUMIN,URINE 1.3 mg/dL (0-300.0)
== END 2021-02-09 10:58 | disposition home or self-care (01) ==
LOC: LAB.S 10:57
PROVIDERS: ATTEND Internal Medicine Nephrology
DX: N18.31 Chronic kidney disease, stage 3a (principal)
CPT/HCPCS: 36415; 80069; 82043; 82570; 83970; 84550; 85027

== ENCOUNTER 2021-03-16 10:59 | Outpatient (CLI) | payer MEDICARE, BC ==
[2021-03-16 21:19] LABS: ESTIMATED AVERAGE GLUCOSE 137 mg/dL (70-100); HEMOGLOBIN A1c% 6.4 % (4.27-6.07)
== END 2021-03-16 11:00 | disposition home or self-care (01) ==
LOC: LAB.S 10:59
PROVIDERS: ATTEND Internal Medicine Endocrinology, Diabetes & Metabolism
DX: E11.65 Type 2 diabetes mellitus with hyperglycemia (principal)
CPT/HCPCS: 36415; 83036

== ENCOUNTER 2021-06-16 12:39 | Outpatient (CLI) | payer MEDICARE, BC ==
[2021-06-16 15:28] LABS: CALCIUM 9.1 mg/dL (8.5-10.3); CREATININE 1.3 mg/dL (0.4-1.0); POTASSIUM 3.3 mmol/L (3.5-5.0)
[2021-06-16 21:37] LABS: ESTIMATED AVERAGE GLUCOSE 148 mg/dL (70-100); HEMOGLOBIN A1c% 6.8 % (4.27-6.07)
== END 2021-06-16 12:40 | disposition home or self-care (01) ==
LOC: LAB.S 12:39
PROVIDERS: ATTEND Hospitalist
DX: E11.65 Type 2 diabetes mellitus with hyperglycemia (principal); I10 Essential (primary) hypertension
CPT/HCPCS: 36415; 80048; 83036

== ENCOUNTER 2021-11-17 11:08 | Outpatient (CLI) | payer MEDICARE, BC ==
[2021-11-17 11:57] VITALS: BP 121/76
--- NOTE | 2021-11-17 11:57 | SLEEP CARE CONSULTATION ---
Information from patient questionnaire entered by Wilbert Walter MA. I have reviewed and concur with the information entered by Wilbert Walter MA. This document represents the service I personally performed and the decisions made by , Carolyn Narayanan ARNP. History of Present Illness Service Date and Time: 11/17/2021 1108 Previous diagnosis: Very Severe, Obstructive Sleep Apnea-Hypopnea Syndrome AHI: 83.4 (in 1997) Reason for follow up: annual (LAST SEEN 05/2020, LISET, LANIER 01/06/2019, ) Equipment type: CPAP Equipment obtained from: [email or web address] (getting supplies as needed) Mask style: Nasal (Wisp) Backup mask available: Yes (old mask) Last cushion change: 2 weeks Prior sleep studies: Yes Year and Where: 1997 - [facility] HPI additional information: RODNEY YBARRA was diagnosed to have very severe, AHI 83.4, obstructive sleep apnea-hypopnea syndrome and returned today for CPAP therapy annual follow-up. Sleep Study - Results Prior sleep studies: Yes Year and Where: 1997 - [facility] CPAP Compliance Data - Data Reviewed with Patient Average duration of nightly device use: 7 HOURS 12 MINUTES Compliance rate %: 100 (07/25/2021-10/22/2021) Current pressure setting (cmH2O): 5-10 Humidity settin Heated hose settin Average residual AHI: 2.4 Average large leak: 25 SECONDS Subjective Patient concerns: reports: mask discomfort (pressure on Bridge of nose), nasal congestion. denies: aerophagia, air blowing in eyes, mask leak noise, condensation in mask/hose, dry mouth, nose, throat, epistaxis, other Observed to snore while using device: No Current pressure setting perceived as: comfortable On therapy, patient: reports: sleeping better, awakening more refreshed, being more awake and alert during the day, more rested overall. denies: drowsiness while driving Initial [place] Sleepiness Scale score: 6 (in 2011) Current [place] Sleepiness Scale score: 11 (11/17/2021) Allergies and Home Medications Known drug allergies: Yes (SEE LIST) Drug allergies reviewed: Yes Home medication list reviewed: Yes (METFORMIN ADDED) Allergy and home medication list: Allergies Iodinated Contrast Media [Iodinated Contrast Media - IV Dye] Allergy (Severe, Verified 06/19/18 10:45) Palpitations minocycline Allergy (Severe, Verified 06/19/18 10:45) Photophobia shellfish derived Allergy (Severe, Verified 06/19/18 10:45) Palpitations liraglutide [From Victoza] Adverse Reaction (Verified 06/19/18 10:45) Unknown Tape Allergy (Intermediate, Uncoded 06/19/18 10:45) Rash/Itching All tape including paper tape METFORMIN 500MG EL VERIFIED BY Yrn WALTER CMA AACA 11-17-2021 1100 Review of Systems Review of systems same as previous: Yes (dry eyes, still recovering from back injury 06/2021) Physical Exam Vital signs obtained and entered by: Yrn WALTER CMA AACA Blood Pressure: 121/76 (R20, P75, RIGHT) Cuff size: wrist Heart Rate: 75 O2 Saturation: 97 Height: 5 ft 4 in Weight: 218 lb (CLOTHES) Body Mass Index: 37.4 BMI Classification: Obese Impression and Plan 1. Obstructive Sleep Apnea-Hypopnea Syndrome, very severe, with excellent treatment compliance and good apnea control. On CPAP therapy, the patient has better sleep quality and is more rested overall. Patient has been getting soreness on the bridge of her nose from her nasal mask. I showed her a nasal cushion by [employer] and she thought this would be a good fit for her. We obtained a sample for her to try at home and I added this to her supply prescription so that she can get it if she decides this is a better mask. Patient would also like to have a prescription for portable CPAP. I explained to her that this cost is not normally covered by insurance and she voiced understanding. She is still wanted a prescription and she cannot pay for this [id number]. Patient's apnea severity and rationale for treatment to reduce apnea, improve sleep quality and reduce cardiovascular and cerebrovascular events was reviewed. I also reviewed the benefit of consistent device use of CPAP for hypertension, diabetes, gastric reflux, depression and anxiety. 2. Obesity, unspecified. Currently patients BMI is 37.4. Obesity increases the risk of apnea, CPAP pressure requirements and overall health risks especially cardiovascular and diabetes. Thus patient is advised to try to lose weight. Weight loss can be done with reducing portion size, reducing refined foods and balancing content with vegetables, fruit and whole grain foods. In addition, patient encouraged to get regular exercise. * Continue auto CPAP pressure at 5-10 cmH2O * Update supplies * Try a [employer] nasal cushion mask * Portable APAP device prescription * Notify me if snoring with mask or feeling that the pressure is too much or too little * Attempt to lose weight * Call this office if any problems using CPAP * Return for follow up in 1 year, or sooner if concerns arise Mask provided: Yes Counseling Topics: Spare mask, Weight loss health impact Visit Type: In Office Time Spent with Patient (minutes): 23 Provider Statement: I spent 100% of the Face to Face Visit with the patient with greater than 50% spent counseling the patient and coordination of care.
== END 2021-11-17 11:09 | disposition home or self-care (01) ==
LOC: SC 11:08
PROVIDERS: ATTEND Nurse Practitioner Family
DX: G47.33 Obstructive sleep apnea (adult) (pediatric) (principal); E66.9 Obesity, unspecified; Z68.37 Body mass index [BMI] 37.0-37.9, adult
CPT/HCPCS: 99213; G0463; 99212

== ENCOUNTER 2022-05-11 21:38 | Outpatient (CLI) | payer MEDICARE, BC | END 2022-05-11 23:59 | disposition short-term general hospital (02) | LOC: EMS 21:38 | DX: M54.9 Dorsalgia, unspecified (principal); M79.602 Pain in left arm; M79.601 Pain in right arm; M79.605 Pain in left leg; M79.604 Pain in right leg; R14.0 Abdominal distension (gaseous); R53.1 Weakness; R25.1 Tremor, unspecified; R26.9 Unspecified abnormalities of gait and mobility | CPT/HCPCS: A0425; A0427 ==

== ENCOUNTER 2022-09-11 08:00 | Outpatient (CLI) | payer MEDICARE, BC ==
--- NOTE | 2022-09-12 14:30 | XRAY Report ---
PROCEDURE: Lumbar Spine 2 View INDICATIONS: LUMBAR BACK PAIN TECHNIQUE: 3 views of the lumbar spine were acquired. COMPARISON: None. FINDINGS: Bones: 5 [id number] vertebrae are present. Multilevel degenerative facet arthropathy. This is r elatively pronounced at L4-L5 and L5-S1. Mild anterolisthesis of L4 on L5 measures 4 mm. There is a m ild superior endplate compression fracture of L2 vertebral body, which may be subacute. No vertebral body compression fractures. No suspicious bony lesions. Soft tissues: Overlying bowel gas pattern is normal. No suspicious soft tissue calcifications. IMPRESSION: 1. A mild superior endplate compression of L2 may potentially be subacute. 2. Multilevel facet arthropathy. Comment: Lumbar spine MRI may be helpful to evaluate the acuity of the fracture, as well as to evalua te for possible canal stenosis. Reviewed by: Kain Leon MD on 09/12/2022 2:29 PM PDT Approved by: Kain Leon MD on 09/12/2022 2:29 PM PDT Station ID: [id number]
== END 2022-09-11 23:59 | disposition home or self-care (01) ==
LOC: DI.S 08:00
PROVIDERS: ATTEND Emergency Medicine
DX: M47.816 Spondylosis without myelopathy or radiculopathy, lumbar region (principal); M47.817 Spondylosis without myelopathy or radiculopathy, lumbosacral region; M48.56XA Collapsed vertebra, not elsewhere classified, lumbar region, initial encounter for fracture

== ENCOUNTER 2022-12-26 12:35 | Outpatient (CLI) | payer MEDICARE, BC ==
--- NOTE | 2022-12-26 13:16 | Sleep Patient Instructions ---
Sleep Center Visit Summary - Patient Visit Information Reason for Visit: Annual Visit - Patient Instructions Additional Instructions: You will continue with CPAP therapy with pressure set at 5-10 cmH2O. A supply prescription will be updated with your DME. We encourage you to continue to try to lose weight. Please follow up with the sleep care office in 1 year. - Clinic Information Contact: [facility] [address] [place] [address] [email or web address] T: [phone]
--- NOTE | 2022-12-26 13:20 | SLEEP CARE CONSULTATION ---
Information from patient questionnaire entered by Mayra Solis. I have reviewed and concur with the information entered by Mayra Solis. This document represents the service I personally performed and the decisions made by me, Carolyn Narayanan ARNP. History of Present Illness Service Date and Time: 12/26/2022 1235 Previous diagnosis: Very Severe, Obstructive Sleep Apnea-Hypopnea Syndrome AHI: 83.4 (in 1997) Reason for follow up: annual (LAST SEEN 11/2021) Equipment type: CPAP ([employer]REAM[employer]ATION (not replaced yet)) Equipment obtained from: [employer] (getting supplies as needed) Mask style: Nasal (Wisp) Backup mask available: Yes Last cushion change: couple weeks Prior sleep studies: Yes Year and Where: 1997 - [facility] HPI additional information: RODNEY YBARRA was diagnosed to have very severe, AHI 83.4, obstructive sleep apnea-hypopnea syndrome and returned today for CPAP therapy annual follow-up. Sleep Study - Results Prior sleep studies: Yes Year and Where: 1997 - [facility] CPAP Compliance Data - Data Reviewed with Patient Average duration of nightly device use: 7 HRS 20 MINS 31 SECS Compliance rate %: 97.8 (06/24/22-12/20/22; 180/180 days used) Current pressure setting (cmH2O): 5-10 Average residual AHI: 3.1 Central apnea: 0.1 Obstructive apnea: 0.7 Hypopnea: 2.3 Average large leak: 1 min 1 sec Subjective Patient concerns: reports: air blowing in eyes (occasional). denies: aerophagia, mask discomfort, mask leak noise, condensation in mask/hose, nasal congestion, dry mouth, nose, throat, epistaxis Observed to snore while using device: No Current pressure setting perceived as: comfortable On therapy, patient: reports: sleeping better, awakening more refreshed, being more awake and alert during the day, more rested overall. denies: drowsiness while driving Initial [place] Sleepiness Scale score: 6 (in 2011) Current [place] Sleepiness Scale score: 10 (12/26/22) Allergies and Home Medications Known drug allergies: Yes (as listed) Drug allergies reviewed: Yes Home medication list reviewed: Yes (see updated list in EMR) Allergy and home medication list: Allergies Iodinated Contrast Media [Iodinated Contrast Media - IV Dye] Allergy (Severe, Verified 12/25/22 10:08) Palpitations minocycline Allergy (Severe, Verified 12/25/22 10:08) Photophobia shellfish derived Allergy (Severe, Verified 12/25/22 10:08) Palpitations liraglutide [From Victoza] Adverse Reaction (Verified 12/25/22 10:08) Unknown Tape Allergy (Intermediate, Uncoded 12/25/22 10:08) Rash/Itching All tape including paper tape Home Medications Medication Instructions Recorded Confirmed Last Taken Type Albuterol Sulfate [Proair Hfa] 8.5 gm IH Q4H PRN 03/06/14 12/26/22 02/16/13 History 2 puffs Fluticasone Propionate [Flovent 50 mcg IH DAILY 03/06/14 12/26/22 03/10/14 History Diskus] 2 sprays Levothyroxine [Synthroid] 125 mcg PO QDAC 03/06/14 12/26/22 03/05/17 History 150 mcg Losartan [Cozaar] 50 mg PO DAILY 03/06/14 12/26/22 03/06/17 History 50 mg Metoprolol Succinate 50 mg PO DAILY 03/06/14 12/26/22 03/05/17 History 25 mg Omeprazole [PriLOSEC] 20 mg PO BID 03/06/14 12/26/22 03/06/17 History 20 mg buPROPion HCL [Bupropion HCl Sr] 300 mg PO DAILY 03/06/14 12/26/22 03/05/17 History 200 mg Acyclovir [Zovirax] 400 mg ORAL TID PRN 03/10/14 12/26/22 03/10/14 History Amoxicillin 500 mg PO ONCE 10/17/17 12/26/22 Unknown History Atorvastatin [Lipitor] 10 mg PO DAILY 10/17/17 12/26/22 Unknown History Azelastine/Fluticasone See Rx Instructions .ROUTE .COMPLEX 12/26/22 12/26/22 Unknown History [Azelastin-Flutic 137-50Mcg Spr] Basalgar Insulin See Rx Instructions .ROUTE .COMPLEX 12/26/22 Unknown History Calcitonin,Sanford,Synthetic See Rx Instructions .ROUTE .COMPLEX 12/26/22 12/26/22 Unknown History [Calcitonin-Sanford] Insulin Aspart [NovoLOG] See Rx Instructions .ROUTE .COMPLEX 12/26/22 12/26/22 Unknown History Loratadine/Pseudoephedrine See Rx Instructions .ROUTE .COMPLEX 12/26/22 12/26/22 Unknown History [Claritin-D 12 Hour Tablet] Semaglutide [Ozempic] See Rx Instructions .ROUTE .COMPLEX 12/26/22 12/26/22 Unknown History Tizanidine HCl [Zanaflex] See Rx Instructions .ROUTE .COMPLEX 12/26/22 12/26/22 Unknown History Review of Systems Review of systems same as previous: No (Fracture L2-L3 with kyphoplasty; gastric polyp removed during EGD; EpsteinB) Physical Exam Vital signs obtained and entered by: MAYRA Rodríguez MA Blood Pressure: 127/46 (LEFT) Cuff size: wrist Heart Rate: 88 O2 Saturation: 100 Height: 5 ft 4 in Weight: 202 lb 6.4 oz Body Mass Index: 34.7 BMI Classification: Obese Impression and Plan 1. Obstructive Sleep Apnea-Hypopnea Syndrome, very severe, with good treatment compliance and good apnea control. On CPAP therapy, the patient has better sleep quality and is more rested overall. Patient has significant improvement of their sleep apnea and is satisfied with current CPAP therapy. Patient denies problems with oral dryness, nasal congestion, epistaxis, skin irritation or ae rophagia. Patient's apnea severity and rationale for treatment to reduce apnea, improve sleep quality and reduce cardiovascular and cerebrovascular events was reviewed. I also reviewed the benefit of consistent device use of CPAP for hypertension, diabetes, gastric reflux, depression and anxiety. 2. Obesity, unspecified. Currently patients BMI is 34.7. Obesity increases the risk of apnea, CPAP pressure requirements and overall health risks especially cardiovascular and diabetes. Thus patient is advised to lose weight. * Continue auto CPAP pressure at 5-10 cmH2O * Update supply prescription * Notify me if snoring with mask or feeling that the pressure is too much or too little * Attempt to lose weight * Call this office if any problems using CPAP * Return for follow up in 1 year, or sooner if concerns arise Counseling Topics: Spare mask, Weight loss health impact Prescriptions: Device supplies Follow up with Sleep Care in: 1 year Visit Type: In Office Time Spent with Patient (minutes): 21 Provider Statement: I spent 100% of the Face to Face Visit with the patient with greater than 50% spent counseling the patient and coordination of care.
[2022-12-26 13:49] VITALS: BP 127/46; O2SAT 100
== END 2022-12-26 12:36 | disposition home or self-care (01) ==
LOC: SC 12:35
PROVIDERS: ATTEND Nurse Practitioner Family
DX: G47.33 Obstructive sleep apnea (adult) (pediatric) (principal); E66.9 Obesity, unspecified; Z68.34 Body mass index [BMI] 34.0-34.9, adult
CPT/HCPCS: 99213; G0463; 99212

== ENCOUNTER 2023-02-15 11:03 | Outpatient (CLI) | payer MEDICARE, BC ==
[2023-02-15 15:33] LABS: CALCIUM 9.9 mg/dL (8.5-10.3); POTASSIUM 4.4 mmol/L (3.5-4.5)
== END 2023-02-15 11:04 | disposition home or self-care (01) ==
LOC: LAB.S 11:03
DX: I10 Essential (primary) hypertension (principal)
CPT/HCPCS: 36415; 80048

== ENCOUNTER 2023-03-23 13:31 | Outpatient (CLI) | payer MEDICARE, BC ==
[2023-03-23 20:06] LABS: CALCIUM 9.5 mg/dL (8.5-10.3); CREATININE 0.9 mg/dL (0.6-1.3); POTASSIUM 4.2 mmol/L (3.5-4.5)
== END 2023-03-23 13:32 | disposition home or self-care (01) ==
LOC: LAB.S 13:31
PROVIDERS: ATTEND Family Medicine
DX: I10 Essential (primary) hypertension (principal)
CPT/HCPCS: 36415; 80048

== ENCOUNTER 2023-06-20 23:52 | Observation (INO) | payer MEDICARE, BC ==
[2023-06-21 00:45] LABS: BASOPHILS % (AUTO) 0.5 %; EOSINOPHILS # (AUTO) 0.1 10^3/uL (0.0-0.7); EOSINOPHILS % (AUTO) 0.6 %; HGB - HEMOGLOBIN 13.4 g/dL (12.0-16.0); LYMPHOCYTES # (AUTO) 1.3 10^3/uL (1.5-3.5); MEAN CORPUSCULAR HEMOGLOBIN 30.8 pg (27.0-31.0); MEAN CORPUSCULAR HGB CONC 34.4 g/dL (32.0-36.0); MEAN CORPUSCULAR VOLUME 89.7 fL (81.0-99.0); MEAN PLATELET VOLUME 8.7 fL (7.9-10.8); MONOCYTES # (AUTO) 0.9 10^3/uL (0.0-1.0); MONOCYTES % (AUTO) 10.4 %; NEUTROPHILS # (AUTO) 6.4 10^3/uL (1.5-6.6); NEUTROPHILS % (AUTO) 73.2 %; PLT - PLATELET COUNT 313 10^3/uL (130-450); RED BLOOD COUNT 4.35 10^6/uL (4.20-5.40); RED CELL DISTRIBUTION WIDTH 12.8 % (12.0-15.0); WHITE BLOOD COUNT 8.8 x10^3/uL (4.8-10.8)
[2023-06-21 00:56] LABS: PARTIAL THROMBOPLASTIN TIME 28.6 secs (24.9-33.3)
[2023-06-21 00:57] LABS: ALBUMIN 4.5 g/dL (3.2-5.5); ALBUMIN/GLOBULIN RATIO 1.8 (1.0-2.2); BILIRUBIN,TOTAL 0.5 mg/dL (0.2-1.0); CALCIUM 9.9 mg/dL (8.5-10.3); CREATININE 1.1 mg/dL (0.6-1.3); POTASSIUM 3.9 mmol/L (3.5-4.5)
[2023-06-21 01:00] LABS: INR 1.1 (0.8-1.2); PT - PROTHROMBIN TIME 11.7 secs (9.9-12.6)
--- NOTE | 2023-06-21 01:07 | ED Physician Documentation ---
PD HPI GI BLEED - Stated complaint Stated Complaint: GI - Chief complaint Chief Complaint: Abd Pain - History obtained from History obtained from: Patient - Additional information Additional information: HPI from patient. Patient complains of lower abdominal cramping, onset approximately 5 PM while at home at rest. This was associated with urge to defecate but upon using the toilet, she noticed bright red blood per rectum. She is not sure if there were any blood clots. Upon getting back up off the toilet, she had a near syncopal episode; she describes generalized weakness, lightheadedness, diaphoresis, nausea without vomiting. She did not lose consciousness and the symptoms resolved after lying down. She does not take any blood-thinning medications. She does not have any history of similar abdominal cramping pains nor of lower GI bleeding. She denies fever, recent travel, recent antibiotics. Review of Systems Constitutional: reports: Sweats. denies: Fever, Chills Cardiac: reports: Reviewed and negative Respiratory: reports: Reviewed and negative GI: reports: Abdominal Pain (lower abdominal cramping, episodic), Nausea, Bloody / black stool. denies: Abdominal Swelling, Vomiting PD PAST MEDICAL HISTORY - Past Medical History Past Medical History: Yes Cardiovascular: Hypertension, High cholesterol Respiratory: Asthma, Sleep apnea, CPAP use, Other Endocrine/Autoimmune: Type 2 diabetes, HyPOthyroidism GI: Ulcers, Hemorrhoids, Other [employer]PERATOR: None : None HEENT: None Psych: Depression, Other Musculoskeletal: Osteoarthritis, Other Derm: None - Past Surgical History Past Surgical History: Yes General: Cholecystectomy, Appendectomy, Colonoscopy Ortho: Knee replacement, Shoulder arthroplasty, Other /[employer] OPERATOR: section, Hysterectomy HEENT: Cataracts - Present Medications Home Medications: Ambulatory Orders Medication Instructions Recorded Confirmed Albuterol Sulfate [Proair Hfa] 2 puffs IH Q4H PRN 03/06/14 06/21/23 Levothyroxine [Synthroid] 125 mcg PO QDAC 03/06/14 06/21/23 Losartan [Cozaar] 100 mg PO DAILY 03/06/14 06/21/23 Metoprolol Succinate 50 mg PO DAILY 03/06/14 06/21/23 Omeprazole [PriLOSEC] 20 mg PO BID 03/06/14 06/21/23 buPROPion HCL [Bupropion HCl Sr] 300 mg PO DAILY 03/06/14 06/21/23 Acyclovir [Zovirax] 800 mg ORAL TID PRN 03/10/14 06/21/23 Amoxicillin 500 mg PO ONCE 10/17/17 06/21/23 Atorvastatin [Lipitor] 20 mg PO DAILY 10/17/17 06/21/23 Azelastine/Fluticasone See Rx Instructions .ROUTE .COMPLEX 12/26/22 06/21/23 [Azelastin-Flutic 137-50Mcg Spr] Basalgar Insulin See Rx Instructions .ROUTE .COMPLEX 12/26/22 06/21/23 Insulin Aspart [NovoLOG] See Rx Instructions .ROUTE .COMPLEX 12/26/22 06/21/23 Loratadine/Pseudoephedrine See Rx Instructions .ROUTE .COMPLEX 12/26/22 06/21/23 [Claritin-D 12 Hour Tablet] Semaglutide [Ozempic] 2 mg IM 12/26/22 12/26/22 Tizanidine HCl [Zanaflex] 2 mg PO DAILY PM PRN 12/26/22 06/21/23 Fluticasone [Flonase] 1 sprays MILLI DAILY 06/21/23 06/21/23 Propylene Glycol/Peg 400/Pf 1 drops EACHEYE BID 06/21/23 06/21/23 [Systane 0.3-0.4% Eye Drop] amLODIPine [Norvasc] 2.5 mg PO DAILY 06/21/23 06/21/23 traMADol [Ultram] 100 mg PO Q6H PRN 06/21/23 06/21/23 - Allergies Allergies/Adverse Reactions: Allergies Allergy/AdvReac Type Severity Reaction Status Date / Time Iodinated Contrast Media Allergy Severe Palpitation Verified 06/21/23 00:21 [Iodinated Contrast Media - s IV Dye] minocycline Allergy Severe Photophobia Verified 06/21/23 00:21 shellfish derived Allergy Severe Palpitation Verified 06/21/23 00:21 s liraglutide [From Victoza] AdvReac Unknown Verified 06/21/23 00:21 Tape Allergy Intermediate Rash/Itchin Uncoded 06/21/23 00:21 g - Social History Does the pt smoke?: No Smoking Status: Never smoker Does the pt drink ETOH?: Yes Does the pt have substance abuse?: No - Immunizations Immunizations are current?: No - POLST Patient has POLST: No PD ED PE NORMAL - Vitals Vital signs reviewed: Yes - General General: Alert and oriented X 3, No acute distress, Well developed/nourished - HEENT HEENT: Moist mucous membranes - Neck Neck: Supple, no meningeal sign - Cardiac Cardiac: RRR - Respiratory Respiratory: No respiratory distress, Clear bilaterally - Abdomen Abdomen: Soft, Non distended, Other (mild TTP across lower abdomen, more pronounced LLQ; no rebound or guarding) - Derm Derm: Normal color PD ED PE EXPANDED - Cardiac Cardiac: Murmur Present (2/6 CHELLY 2nd left ICS (patient says she has been told she has a heart murmur)) Results - Vitals Vitals: Vital Signs - 24 hr 06/21/23 06/21/23 06/21/23 00:13 01:01 03:00 Temperature 36.8 C Heart Rate 99 88 95 Respiratory 18 20 20 Rate Blood Pressure 151/76 H 139/63 H 128/55 L O2 Saturation 100 98 97 06/21/23 05:00 Temperature Heart Rate 90 Respiratory 18 Rate Blood Pressure 122/72 O2 Saturation 96 Oxygen O2 Source Room air - Labs Labs: Laboratory Tests 06/21/23 06/21/23 06/21/23 00:34 00:34 00:34 WBC 8.8 RBC 4.35 Hgb 13.4 Hct 39.0 MCV 89.7 MCH 30.8 MCHC 34.4 RDW 12.8 Plt Count 313 MPV 8.7 Neut # (Auto) 6.4 Lymph # (Auto) 1.3 L Gaines # (Auto) 0.9 Eos # (Auto) 0.1 Baso # (Auto) 0.0 Absolute Nucleated RBC 0.00 Nucleated RBC % 0.0 PT 11.7 INR 1.1 APTT 28.6 Sodium 135 Potassium 3.9 Chloride 102 Carbon Dioxide 23 Anion Gap 10.0 BUN 23 H Creatinine 1.1 Estimated GFR (MDRD) 48 L Glucose 109 H Calcium 9.9 Total Bilirubin 0.5 AST 18 ALT 20 Alkaline Phosphatase 73 Total Protein 7.0 Albumin 4.5 Globulin 2.5 Albumin/Globulin Ratio 1.8 Lipase 14 06/21/23 02:58 WBC RBC Hgb 11.3 L Hct 32.6 L MCV MCH MCHC RDW Plt Count MPV Neut # (Auto) Lymph # (Auto) Gaines # (Auto) Eos # (Auto) Baso # (Auto) Absolute Nucleated RBC Nucleated RBC % PT INR APTT Sodium Potassium Chloride Carbon Dioxide Anion Gap BUN Creatinine Estimated GFR (MDRD) Glucose Calcium Total Bilirubin AST ALT Alkaline Phosphatase Total Protein Albumin Globulin Albumin/Globulin Ratio Lipase - Rads (name of study) CT A/P with IV contrast Relevant Findings:: Prelim report reviewed, See rad report PD Medical Decision Making - ED course Complexity details: reviewed results, re-evaluated patient, considered differential, d/w patient ED course: Patient presents with lower abdominal cramping pain associated with bright red blood per rectum. Afebrile with normal white blood cell count. Her initial hemoglobin is 13.4, but she has more episodes of bright red blood per rectum during ED stay and a 2.5-hour repeat hemoglobin is 11.3. 600 cc normal saline had been given, which, alone, would not account for a 2.1 g drop in hemoglobin in this relatively short time span. The CT scan of the abdomen and pelvis interpreted by radiologist as "intraluminal fluid diffusely throughout the colon extending to the distal rectum/anus. Finding most consistent with diarrheal based illness/colitis". Results discussed with patient. Patient appropriate for admission to [facility] for further observation (serial h/h and repeat abdominal exams). Given the findings suggestive of colitis on CT, combined with hematochezia, she is given 400mg IV cipro to cover possible bacterial colitis. Note that during ED stay, the patient's glucose monitor indicated her blood sugar had dropped to as low as 89; she is thus given 25 mL (half amp) of D50 IV. The patient is insulin-dependent diabetic. [facility] and [facility] is willing to admit as long as on-duty surgeon is available for consult and, if need be,can perform colonoscopy. I then spoke with Dr. Sanchez (on-call surgeon for [facility]); she confirms that she can be consulted and can perform colonoscopy if indicated. Departure - Departure Disposition: ED Place in Observation Clinical Impression: Colitis, Lower GI bleeding Condition: Stable Discharge Date/Time: 06/21/23 07:07
[2023-06-21] MEDS ORDERED: iohexoL-300 100 ML VIAL ONE (01:55)
[2023-06-21] MEDS: diphenhydrAMINE INJ 50 MG/ML VIAL IVP STA (02:13)
[2023-06-21] MEDS: iohexoL-300 100 ML VIAL IVP ONE (02:51)
[2023-06-21 03:02] LABS: HCT - HEMATOCRIT 32.6 % (37.0-47.0); HGB - HEMOGLOBIN 11.3 g/dL (12.0-16.0)
[2023-06-21] MEDS: DEXTROSE 50% ABBOJECT 25 GM/50 ML SYRINGE IVP STA (03:24)
[2023-06-21] MEDS: CIPROFLOXACIN 400 MG/200 ML 400 MG/200 ML BAG IV STA (04:45)
[2023-06-21] MEDS ORDERED: SODIUM CHLORIDE FLUSH 0.9% 10 ML SYRINGE IVP PRN (06:04)
[2023-06-21] MEDS ORDERED: ACETAMINOPHEN 325 MG TABLET PO PRN (06:04)
[2023-06-21] MEDS ORDERED: ONDANSETRON ODT 4 MG TABLET TL PRN (06:04)
[2023-06-21] MEDS ORDERED: ALBUTEROL NEB 2.5 MG/3 ML INH PRN (06:49)
[2023-06-21] MEDS: PIPERACILLIN/TAZOBACTAM 4.5 GM in SODIUM CHLORIDE 0.9% MINIBAG 100 ML IV STA (06:50)
[2023-06-21] MEDS ORDERED: PIPERACILLIN/TAZOBACTAM 2.25 GM in SODIUM CHLORIDE 0.9% MINIBAG 100 ML IV SCH (07:00)
[2023-06-21] MEDS ORDERED: PANTOPRAZOLE 40 MG TABLET PO SCH (07:00)
--- NOTE | 2023-06-21 08:22 | CT Report ---
PROCEDURE: Abdomen/Pelvis W INDICATIONS: LLQ pain, hematochezia CONTRAST: omni 300, 1oomls TECHNIQUE: After the administration of intravenous contrast, a CT scan of the abdomen and pelvis was performed. Images were recorded and evaluated at appropriate window settings. Reformats: coronal and sagittal. F or radiation dose reduction, the following was used: automated exposure control, adjustment of mA and /or kV according to patient size. COMPARISON: None. FINDINGS: Image quality: Diagnostic. Lower chest: No pleural effusions. Liver: No solid mass. Gallbladder and biliary tree: Postcholecystectomy. No biliary dilatation. Spleen: No splenomegaly. Pancreas: No pancreatic ductal dilation. Adrenals: No adrenal nodule. Kidneys and ureters: Symmetric enhancement. 2.8 cm exophytic right lower pole renal cyst. No suspicio us solid mass or hydronephrosis. No hydroureter or ureterolithiasis. Stomach, bowel and peritoneum: The stomach is decompressed. Small bowel loops are nondilated. The kavin endix is surgically absent. There is long segment decompression and mild uniform wall thickening invo lving the transverse, descending colon, and sigmoid. There is some fluid in a fairly decompressed rec raudel without wall thickening. No significant pericolonic inflammation. No visible inflamed diverticula . No free fluid or free air. Lymph nodes: No central or retroperitoneal adenopathy. Vessels: Normal caliber vessels. Mild atherosclerotic calcification of the aorta. PELVIS Reproductive organs: Surgically absent. Bladder: Decompressed. Pelvic lymph nodes: No pelvic adenopathy by size criteria. Bones: L2 and L3 vertebroplasty changes.. Other: Small fat-containing right inguinal hernia. IMPRESSION: Mild long segmental colon wall thickening and colonic decompression/spasm. This can be seen in coliti s/enteritis. Final interpretation concordant with preliminary report. Reviewed by: Ayleen Morales MD on 06/21/2023 8:21 AM PDT Approved by: Ayleen Morales MD on 06/21/2023 8:21 AM PDT Station ID: [id number]
[2023-06-21] MEDS: INSULIN LISPRO 300 UNIT/3 ML PEN SUBQ SCH (08:37)
[2023-06-21] MEDS: LEVOTHYROXINE 125 MCG TABLET PO SCH (08:38)
[2023-06-21] MEDS: amLODIPine 5 MG TABLET PO SCH (08:49)
[2023-06-21] MEDS: LACTOBACILLUS RHAMNOSUS GG CAPSULE PO SCH (08:50)
[2023-06-21] MEDS: METOPROLOL SUCCINATE 25 MG TABLET PO SCH (08:50)
[2023-06-21] MEDS: FLUTICASONE NASAL SPRAY NAS SCH (08:50)
[2023-06-21] MEDS: ATORVASTATIN 10 MG TABLET PO SCH (08:50)
[2023-06-21] MEDS: PANTOPRAZOLE 40 MG VIAL IVP SCH (08:50)
[2023-06-21] MEDS: LOSARTAN 50 MG TABLET PO SCH (08:51)
[2023-06-21] MEDS ORDERED: PROPYLENE GLYCOL EACHEYE SCH (09:00)
[2023-06-21] MEDS ORDERED: [UNRECOGNIZED DRUG - OTHER] EACHEYE SCH (09:00)
[2023-06-21] MEDS ORDERED: POLYETHYLENE GLYCOL 400 EACHEYE SCH (09:00)
[2023-06-21] MEDS: SODIUM CHLORIDE FLUSH 0.9% 10 ML SYRINGE IVP SCH (09:02)
[2023-06-21] MEDS ORDERED: SODIUM CHLORIDE 0.9% 1,000 ML ONE (10:19)
[2023-06-21] MEDS: PIPERACILLIN/TAZOBACTAM 4.5 GM in SODIUM CHLORIDE 0.9% MINIBAG 100 ML IV SCH (10:21)
[2023-06-21] MEDS: SODIUM CHLORIDE 0.9% 1,000 ML IV SCH (10:50)
--- NOTE | 2023-06-21 11:38 | OPERATIVE REPORT ---
Operative Report - General Admit Date: 06/21/23 Procedure Date: 06/21/23 Planned Procedure: laparoscopic appendectomy
--- NOTE | 2023-06-21 11:39 | PHARMACY PROGRESS NOTE ---
- Best Possible Medication History Admit Date and Time: 06/21/23 0603 Processed by: Pharmacy Medications reviewed in ED?: No Medication History completed: Yes Patient Interview: Completed Secondary Source(s): Written medication list, Insurance records As the person ultimately responsible for medication therapy, providers are able to order a medication from an existing home medication list in [facility] via the "Reconcile Routine" prior to Confirmation of that medication by system support technician. Such practice is discouraged except when the physician, in their clinical judgment, deems that a medical need exists for a medication without regard to previous use.
[2023-06-21 12:26] LABS: HCT - HEMATOCRIT 35.2 % (37.0-47.0); HGB - HEMOGLOBIN 11.9 g/dL (12.0-16.0)
--- NOTE | 2023-06-21 13:06 | PROVIDER PROGRESS NOTE ---
Assessment/Plan - Problem List (1) Colitis Assessment/Plan: --Stool PCR pending. --CT scan showing mild colitis. --Continue IV Zosyn. --WBC within normal limits. --Tolerate CLD, ADAT. (2) Lower GI bleeding Assessment/Plan: --Hemoglobin is stable. Discussed case with general surgery. No need for intervention at this point. --Holding all anticoagulation, --H/H every 8 hours. (3) Insulin dependent diabetes mellitus Assessment/Plan: --SSI. - Current Meds Current Meds: Current Medications Generic Name Dose Route Start Last Admin Trade Name Freq PRN Reason Stop Dose Admin Amlodipine Besylate 2.5 mg 06/21/23 09:00 06/21/23 08:49 Amlodipine 5 Mg Tablet PO 2.5 mg DAILY SONG Administration Atorvastatin Calcium 20 mg 06/21/23 09:00 06/21/23 08:50 Atorvastatin 10 Mg Tablet PO 20 mg DAILY SONG Administration Fluticasone Propionate 1 sprays 06/21/23 09:00 06/21/23 08:50 Fluticasone Nasal [place] MILLI 1 spray DAILY SONG Administration Piperacillin Sod/Tazobactam 100 mls @ 25 mls/hr 06/21/23 10:00 06/21/23 10:21 Sod 4.5 gm/ Sodium Chloride IV 25 mls/hr Q8H SONG Administration Insulin Human Lispro 1 - 9 unit 06/21/23 08:00 06/21/23 08:37 Insulin Lispro 300 Unit/3 Ml Pen SUBQ Not Given 0800,1200,1700,2100 [facility] Protocol Lactobacillus Rhamnosus 1 cap 06/21/23 09:00 06/21/23 08:50 Lactobacillus Rhamnosus Gg Capsule PO 1 cap DAILY SONG Administration Levothyroxine Sodium 125 mcg 06/21/23 07:00 06/21/23 08:38 Levothyroxine 125 Mcg Tablet PO Not Given QDAC SONG Losartan Potassium 100 mg 06/21/23 09:00 06/21/23 08:53 Losartan 50 Mg Tablet PO 100 mg DAILY SONG Administration Metoprolol Succinate 50 mg 06/21/23 09:00 06/21/23 08:50 Metoprolol Succinate 25 Mg Tablet PO Not Given DAILY SONG Pantoprazole Sodium 40 mg 06/21/23 09:00 06/21/23 08:50 Pantoprazole 40 Mg Vial IVP 40 mg DAILY SONG Administration Sodium Chloride 10 ml 06/21/23 09:00 06/21/23 09:02 Sodium Chloride Flush 0.9% 10 Ml Syringe IVP Not Given 0100,0900,1700 SONG - Lab Result Fish Bone Diagrams: 06/21/23 12:15 06/21/23 00:34 - Additional Planning My Orders: My Active Orders 06/21/23 Lunch Clear Liquid Diet [DIET] 06/21/23 20:00 HEMOGLOBIN AND HEMATOCRIT [HEME] Q8H 06/22/23 04:00 HEMOGLOBIN AND HEMATOCRIT [HEME] Q8H 06/22/23 05:00 BMP - BASIC METABOLIC PANEL [CHEM] DAILYLAB CBC [CBC - COMP BLD CT W/AUTO DIFF] [HEME] DAILYLAB 06/23/23 05:00 BMP - BASIC METABOLIC PANEL [CHEM] DAILYLAB CBC [CBC - COMP BLD CT W/AUTO DIFF] [HEME] DAILYLAB 06/24/23 05:00 BMP - BASIC METABOLIC PANEL [CHEM] DAILYLAB CBC [CBC - COMP BLD CT W/AUTO DIFF] [HEME] DAILYLAB 06/25/23 05:00 BMP - BASIC METABOLIC PANEL [CHEM] DAILYLAB CBC [CBC - COMP BLD CT W/AUTO DIFF] [HEME] DAILYLAB 06/26/23 05:00 BMP - BASIC METABOLIC PANEL [CHEM] DAILYLAB CBC [CBC - COMP BLD CT W/AUTO DIFF] [HEME] DAILYLAB Subjective - Subjective Patient Reports: Feeling Better, Resting Comfortably, No Complaints Objective Vital Signs: Vital Signs - 24 hr 06/21/23 06/21/23 06/21/23 00:13 01:01 03:00 Temperature 36.8 C Heart Rate 99 88 95 Heart Rate [ Brachial] Respiratory 18 20 20 Rate Blood Pressure 151/76 H 139/63 H 128/55 L Blood Pressure [Left Brachial artery] O2 Saturation 100 98 97 06/21/23 06/21/23 06/21/23 05:00 07:15 08:00 Temperature 36.7 C 36.8 C Heart Rate 90 Heart Rate [ 89 89 Brachial] Respiratory 18 20 18 Rate Blood Pressure 122/72 Blood Pressure 126/93 H 128/102 H [Left Brachial artery] O2 Saturation 96 99 97 Oxygen O2 Source Room air I&O (Last 24 Hrs): Intake and Output Totals x24h 06/19/23 06/20/23 06/21/23 23:59 23:59 23:59 Intake Total 200 Balance 200 General: Alert, Oriented x3, Cooperative Cardiovascular: Regular rate, Normal S1, Normal S2, No murmurs Respiratory: Chest non-tender, No respiratory distress, Breath sounds nml Abdomen: Normal bowel sounds, Soft, No tenderness, No hepatospenomegaly, No masses - Results Results: Laboratory Results WBC 8.8 x10^3/uL (4.8-10.8) 06/21/23 00:34 RBC 4.35 10^6/uL (4.20-5.40) 06/21/23 00:34 Hgb 11.9 g/dL (12.0-16.0) L 06/21/23 12:15 Hct 35.2 % (37.0-47.0) L 06/21/23 12:15 MCV 89.7 fL (81.0-99.0) 06/21/23 00:34 MCH 30.8 pg (27.0-31.0) 06/21/23 00:34 MCHC 34.4 g/dL (32.0-36.0) 06/21/23 00:34 RDW 12.8 % (12.0-15.0) 06/21/23 00:34 Plt Count 313 10^3/uL (130-450) 06/21/23 00:34 MPV 8.7 fL (7.9-10.8) 06/21/23 00:34 Neut # (Auto) 6.4 10^3/uL (1.5-6.6) 06/21/23 00:34 Lymph # (Auto) 1.3 10^3/uL (1.5-3.5) L 06/21/23 00:34 Ripley # (Auto) 0.9 10^3/uL (0.0-1.0) 06/21/23 00:34 Eos # (Auto) 0.1 10^3/uL (0.0-0.7) 06/21/23 00:34 Baso # (Auto) 0.0 10^3/uL (0.0-0.1) 06/21/23 00:34 Absolute Nucleated RBC 0.00 x10^3/uL 06/21/23 00:34 Nucleated RBC % 0.0 /100WBC 06/21/23 00:34 PT 11.7 secs (9.9-12.6) 06/21/23 00:34 INR 1.1 (0.8-1.2) 06/21/23 00:34 APTT 28.6 secs (24.9-33.3) 06/21/23 00:34 Sodium 135 mmol/L (135-145) 06/21/23 00:34 Potassium 3.9 mmol/L (3.5-4.5) 06/21/23 00:34 Chloride 102 mmol/L (101-111) 06/21/23 00:34 Carbon Dioxide 23 mmol/L (21-32) 06/21/23 00:34 Anion Gap 10.0 (6-13) 06/21/23 00:34 BUN 23 mg/dL (6-20) H 06/21/23 00:34 Creatinine 1.1 mg/dL (0.6-1.3) 06/21/23 00:34 Estimated GFR (MDRD) 48 (>89) L 06/21/23 00:34 Glucose 109 mg/dL (74-104) H 06/21/23 00:34 Calcium 9.9 mg/dL (8.5-10.3) 06/21/23 00:34 Total Bilirubin 0.5 mg/dL (0.2-1.0) 06/21/23 00:34 AST 18 IU/L (10-42) 06/21/23 00:34 ALT 20 IU/L (10-60) 06/21/23 00:34 Alkaline Phosphatase 73 IU/L (42-121) 06/21/23 00:34 Total Protein 7.0 g/dL (6.4-8.9) 06/21/23 00:34 Albumin 4.5 g/dL (3.2-5.5) 06/21/23 00:34 Globulin 2.5 g/dL (2.1-4.2) 06/21/23 00:34 Albumin/Globulin Ratio 1.8 (1.0-2.2) 06/21/23 00:34 Lipase 14 U/L (11-82) 06/21/23 00:34 Stl C. diff Tox B Gene NEGATIVE (NEGATIVE) 06/21/23 08:05 - Procedures Procedures: Procedures EXCISION OF DESCENDING COLON, ENDO, DIAGN (03/06/17) OTH CHEST CAGE OSTECTOMY (03/10/14) OTHER PLASTIC OPS TENDON (03/10/14) ROTATOR CUFF REPAIR (03/10/14)
[2023-06-21] MEDS: LACTATED RINGERS 1,000 ML IV SCH (19:35)
[2023-06-21] MEDS: traMADol 50 MG TABLET PO PRN (19:41)
[2023-06-21 20:20] LABS: HCT - HEMATOCRIT 31.5 % (37.0-47.0); HGB - HEMOGLOBIN 10.7 g/dL (12.0-16.0)
[2023-06-22] MEDS ORDERED: DIMETHICONE CREAM 118 ML TUBE TOP STA ×2 (02:59→03:01)
[2023-06-22 05:57] LABS: BASOPHILS % (AUTO) 0.3 %; EOSINOPHILS # (AUTO) 0.1 10^3/uL (0.0-0.7); HCT - HEMATOCRIT 31.7 % (37.0-47.0); HGB - HEMOGLOBIN 10.7 g/dL (12.0-16.0); LYMPHOCYTES # (AUTO) 1.2 10^3/uL (1.5-3.5); LYMPHOCYTES % (AUTO) 20.1 %; MEAN CORPUSCULAR HEMOGLOBIN 31.3 pg (27.0-31.0); MEAN CORPUSCULAR HGB CONC 33.8 g/dL (32.0-36.0); MEAN CORPUSCULAR VOLUME 92.7 fL (81.0-99.0); MEAN PLATELET VOLUME 8.9 fL (7.9-10.8); MONOCYTES # (AUTO) 0.7 10^3/uL (0.0-1.0); MONOCYTES % (AUTO) 11.4 %; NEUTROPHILS % (AUTO) 65.9 %; PLT - PLATELET COUNT 221 10^3/uL (130-450); RED BLOOD COUNT 3.42 10^6/uL (4.20-5.40); RED CELL DISTRIBUTION WIDTH 12.9 % (12.0-15.0); WHITE BLOOD COUNT 6.1 x10^3/uL (4.8-10.8)
[2023-06-22 06:12] LABS: CALCIUM 8.9 mg/dL (8.5-10.3); CREATININE 0.8 mg/dL (0.6-1.3); POTASSIUM 3.4 mmol/L (3.5-4.5)
[2023-06-22 10:10] LABS: ADENOVIRUS F 40/41 Not Detected (Not Detected); ASTROVIRUS Not Detected (Not Detected); C DIFFICILE TOXIN A/B Not Detected (Not Detected); CAMPYLOBACTER Not Detected (Not Detected); CRYPTOSPORIDIUM Not Detected (Not Detected); CYCLOSPORA CAYETANENSIS Not Detected (Not Detected); ENTAMOEBA HISTOLYTICA Not Detected (Not Detected); ENTEROAGGREGATIVE E COLI Not Detected (Not Detected); ENTEROPATHOGENIC E COLI Not Detected (Not Detected); ENTEROTOXIGENIC E COLI Not Detected (Not Detected); GIARDIA LAMBLIA Not Detected (Not Detected); NOROVIRUS GI/GII Not Detected (Not Detected); PLESIOMONAS SHIGELLOIDES Not Detected (Not Detected); ROTAVIRUS A Not Detected (Not Detected); SALMONELLA Not Detected (Not Detected); SAPOVIRUS Not Detected (Not Detected); SHIGA-TOXIN-PRODUCING E COLI Not Detected (Not Detected); SHIGELLA/ENTEROINVASIVE E COLI Not Detected (Not Detected); VIBRIO Not Detected (Not Detected); VIBRIO CHOLERAE Not Detected (Not Detected); YERSINIA ENTEROCOLITICA Not Detected (Not Detected)
--- NOTE | 2023-06-22 14:24 | Ultrasound Report ---
PROCEDURE: Renal (Retroperitoneal) INDICATIONS: Acute kidney injury. TECHNIQUE: Real-time scanning was performed of the retroperitoneal organs, with image documentation. COMPARISON: CT 06/21/2023 FINDINGS: Kidneys: Kidneys are normal in size. Right kidney measures 10 cm long; left kidney measures 10.2 cm long. Right renal cortical thickness is 0.4 cm; left renal cortical thickness is 0.8 cm. No solid masses, hydronephrosis, or nephrolithiasis. Benign, anechoic renal cyst on the right measuring 3 cm. Similar extrarenal pelvis on the right. Increased renal parenchymal echogenicity. Bladder: Pre-void bladder volume is 127 mL. Post-void residual is 49 mL. Pre-void images demonstra te no intraluminal masses or stones. On pre-void images, both ureteral jets are noted with color Dop pler interrogation. (Of note, ureteral jets may not be detectable in up to 25% of cases due to insuf ficient differences in specific gravity between ureteral and bladder urine). Miscellaneous: No free abdominal fluid. IMPRESSION: Increased renal parenchymal echogenicity, which can be seen in acute or chronic parenchymal disease. No hydronephrosis. Reviewed by: Alexis Holloway MD on 06/22/2023 2:23 PM PDT Approved by: Alexis Holloway MD on 06/22/2023 2:23 PM PDT Station ID: [id number]
--- NOTE | 2023-06-22 15:23 | PROVIDER PROGRESS NOTE ---
Assessment/Plan - Problem List (1) Colitis Assessment/Plan: (1) Colitis Assessment/Plan: --Stool PCR negative. --CT scan showing mild colitis. --Continue IV Zosyn. --WBC within normal limits. --Tolerate CLD. Did not tolerate a regular diet. Will monitor for another day. (2) Lower GI bleeding Assessment/Plan: --Hemoglobin is stable. Discussed case with general surgery. No need for intervention at this point. --Holding all anticoagulation. (3) Insulin dependent diabetes mellitus Assessment/Plan: --SSI. - Current Meds Current Meds: Current Medications Generic Name Dose Route Start Last Admin Trade Name Freq PRN Reason Stop Dose Admin Amlodipine Besylate 2.5 mg 06/21/23 09:00 06/22/23 08:13 Amlodipine 5 Mg Tablet PO 2.5 mg DAILY SONG Administration Atorvastatin Calcium 20 mg 06/21/23 09:00 06/22/23 08:14 Atorvastatin 10 Mg Tablet PO 20 mg DAILY SONG Administration Fluticasone Propionate 1 sprays 06/21/23 09:00 06/22/23 08:14 Fluticasone Nasal [place] MILLI 1 spray DAILY SONG Administration Piperacillin Sod/Tazobactam 100 mls @ 25 mls/hr 06/21/23 10:00 06/22/23 14:15 Sod 4.5 gm/ Sodium Chloride IV Infused Q8H SONG Infusion Sodium Chloride 1,000 mls @ 100 mls/hr 06/21/23 14:00 06/22/23 06:25 Normal Saline 0.9% IV 100 mls/hr .Q10H SONG Administration Insulin Human Lispro 1 - 9 unit 06/21/23 08:00 06/22/23 14:10 Insulin Lispro 300 Unit/3 Ml Pen SUBQ Not Given 0800,1200,1700,2100 [facility] Protocol Lactobacillus Rhamnosus 1 cap 06/21/23 09:00 06/22/23 08:14 Lactobacillus Rhamnosus Gg Capsule PO 1 cap DAILY SONG Administration Levothyroxine Sodium 125 mcg 06/21/23 07:00 06/22/23 04:16 Levothyroxine 125 Mcg Tablet PO 125 mcg QDAC SONG Administration Losartan Potassium 100 mg 06/21/23 09:00 06/22/23 08:14 Losartan 50 Mg Tablet PO 100 mg DAILY SONG Administration Metoprolol Succinate 50 mg 06/21/23 09:00 06/22/23 08:13 Metoprolol Succinate 25 Mg Tablet PO 50 mg DAILY SONG Administration Pantoprazole Sodium 40 mg 06/21/23 09:00 06/22/23 08:13 Pantoprazole 40 Mg Vial IVP 40 mg DAILY SONG Administration Sodium Chloride 10 ml 06/21/23 09:00 06/22/23 08:20 Sodium Chloride Flush 0.9% 10 Ml Syringe IVP Not Given 0100,0900,1700 SONG Tramadol HCl 25 mg 06/21/23 06:02 06/22/23 07:40 Tramadol 50 Mg Tablet PO 25 mg Q8H PRN Administration PAIN 5-7 - Lab Result Fish Bone Diagrams: 06/22/23 05:18 06/22/23 05:18 - Additional Planning My Orders: My Active Orders 06/22/23 Dinner Regular Diet [DIET] 06/23/23 05:00 BMP - BASIC METABOLIC PANEL [CHEM] DAILYLAB CBC [CBC - COMP BLD CT W/AUTO DIFF] [HEME] DAILYLAB 06/24/23 05:00 BMP - BASIC METABOLIC PANEL [CHEM] DAILYLAB CBC [CBC - COMP BLD CT W/AUTO DIFF] [HEME] DAILYLAB 06/25/23 05:00 BMP - BASIC METABOLIC PANEL [CHEM] DAILYLAB CBC [CBC - COMP BLD CT W/AUTO DIFF] [HEME] DAILYLAB 06/26/23 05:00 BMP - BASIC METABOLIC PANEL [CHEM] DAILYLAB CBC [CBC - COMP BLD CT W/AUTO DIFF] [HEME] DAILYLAB Subjective - Subjective Patient Reports: Feeling Better, No Complaints Objective Vital Signs: Vital Signs - 24 hr 06/21/23 06/21/23 06/21/23 15:57 20:19 20:21 Temperature 36.7 C 36.6 C Heart Rate [ 85 83 84 Brachial] Respiratory 20 16 Rate Blood Pressure 108/62 121/53 L 125/52 L [Left Brachial artery] O2 Saturation 98 99 06/21/23 06/22/23 06/22/23 23:30 04:17 07:58 Temperature 36.6 C 36.6 C 36.6 C Heart Rate [ 88 85 82 Brachial] Respiratory 24 20 16 Rate Blood Pressure 143/59 H 140/61 H 133/58 H [Left Brachial artery] O2 Saturation 99 98 97 06/22/23 13:00 Temperature 36.6 C Heart Rate [ 84 Brachial] Respiratory 18 Rate Blood Pressure 138/77 H [Left Brachial artery] O2 Saturation 95 Oxygen O2 Source Room air I&O (Last 24 Hrs): Intake and Output Totals x24h 06/20/23 06/21/23 06/22/23 23:59 23:59 23:59 Intake Total 2220 1655 Balance 2220 1655 Cardiovascular: Regular rate, Normal S1, Normal S2, No murmurs Respiratory: Chest non-tender, No respiratory distress, Breath sounds nml Abdomen: Normal bowel sounds, Soft, No tenderness, No hepatospenomegaly, No masses - Results Results: Laboratory Results WBC 6.1 x10^3/uL (4.8-10.8) 06/22/23 05:18 RBC 3.42 10^6/uL (4.20-5.40) L 06/22/23 05:18 Hgb 10.7 g/dL (12.0-16.0) L 06/22/23 05:18 Hct 31.7 % (37.0-47.0) L 06/22/23 05:18 MCV 92.7 fL (81.0-99.0) 06/22/23 05:18 MCH 31.3 pg (27.0-31.0) H 06/22/23 05:18 MCHC 33.8 g/dL (32.0-36.0) 06/22/23 05:18 RDW 12.9 % (12.0-15.0) 06/22/23 05:18 Plt Count 221 10^3/uL (130-450) 06/22/23 05:18 MPV 8.9 fL (7.9-10.8) 06/22/23 05:18 Neut # (Auto) 4.0 10^3/uL (1.5-6.6) 06/22/23 05:18 Lymph # (Auto) 1.2 10^3/uL (1.5-3.5) L 06/22/23 05:18 [place] # (Auto) 0.7 10^3/uL (0.0-1.0) 06/22/23 05:18 Eos # (Auto) 0.1 10^3/uL (0.0-0.7) 06/22/23 05:18 Baso # (Auto) 0.0 10^3/uL (0.0-0.1) 06/22/23 05:18 Absolute Nucleated RBC 0.00 x10^3/uL 06/22/23 05:18 Nucleated RBC % 0.0 /100WBC 06/22/23 05:18 PT 11.7 secs (9.9-12.6) 06/21/23 00:34 INR 1.1 (0.8-1.2) 06/21/23 00:34 APTT 28.6 secs (24.9-33.3) 06/21/23 00:34 Sodium 136 mmol/L (135-145) 06/22/23 05:18 Potassium 3.4 mmol/L (3.5-4.5) L 06/22/23 05:18 Chloride 107 mmol/L (101-111) 06/22/23 05:18 Carbon Dioxide 23 mmol/L (21-32) 06/22/23 05:18 Anion Gap 6.0 (6-13) 06/22/23 05:18 BUN 8 mg/dL (6-20) 06/22/23 05:18 Creatinine 0.8 mg/dL (0.6-1.3) 06/22/23 05:18 Estimated GFR (MDRD) 70 (>89) L 06/22/23 05:18 Glucose 108 mg/dL (74-104) H 06/22/23 05:18 POC Whole Bld Glucose 100 mg/dL (70 - 100) 06/22/23 11:15 Calcium 8.9 mg/dL (8.5-10.3) 06/22/23 05:18 Total Bilirubin 0.5 mg/dL (0.2-1.0) 06/21/23 00:34 AST 18 IU/L (10-42) 06/21/23 00:34 ALT 20 IU/L (10-60) 06/21/23 00:34 Alkaline Phosphatase 73 IU/L (42-121) 06/21/23 00:34 Total Protein 7.0 g/dL (6.4-8.9) 06/21/23 00:34 Albumin 4.5 g/dL (3.2-5.5) 06/21/23 00:34 Globulin 2.5 g/dL (2.1-4.2) 06/21/23 00:34 Albumin/Globulin Ratio 1.8 (1.0-2.2) 06/21/23 00:34 Lipase 14 U/L (11-82) 06/21/23 00:34 Stl C. cayetanensis PCR Not Detected (Not Detected) 06/21/23 08:05 Stool Rotavirus A PCR Not Detected (Not Detected) 06/21/23 08:05 Stl Adenov F 40/41 PCR Not Detected (Not Detected) 06/21/23 08:05 Stool Astrovirus (PCR) Not Detected (Not Detected) 06/21/23 08:05 Stool Campylobacter PCR Not Detected (Not Detected) 06/21/23 08:05 Stl C. diff Tox B Gene NEGATIVE (NEGATIVE) 06/21/23 08:05 Stl C. diff Tox A/B PCR Not Detected (Not Detected) 06/21/23 08:05 Stool Cryptosporidium PCR Not Detected (Not Detected) 06/21/23 08:05 Stl Sh Tox Pr E STEC PCR Not Detected (Not Detected) 06/21/23 08:05 Stool E coli O157 PCR Not applicable (Not Detected) 06/21/23 08:05 Stl Enterotoxigenic E PCR Not Detected (Not Detected) 06/21/23 08:05 Stool EPEC (PCR) Not Detected (Not Detected) 06/21/23 08:05 Stl E. histolytica PCR Not Detected (Not Detected) 06/21/23 08:05 Stool Giardia Lamblia PCR Not Detected (Not Detected) 06/21/23 08:05 Stl P. shigelloides PCR Not Detected (Not Detected) 06/21/23 08:05 Stool Salmonella PCR Not Detected (Not Detected) 06/21/23 08:05 Stool Sapovirus (PCR) Not Detected (Not Detected) 06/21/23 08:05 Stl Shigella/EIEC PCR Not Detected (Not Detected) 06/21/23 08:05 St Y.enterocolitica PCR Not Detected (Not Detected) 06/21/23 08:05 Stool Vibrio (PCR) Not Detected (Not Detected) 06/21/23 08:05 Stl Vibrio cholerae PCR Not Detected (Not Detected) 06/21/23 08:05 Stl Enteroaggr Ecoli PCR Not Detected (Not Detected) 06/21/23 08:05 Stl Norovirus GI/GII PCR Not Detected (Not Detected) 06/21/23 08:05 - Procedures Procedures: Procedures EXCISION OF DESCENDING COLON, ENDO, DIAGN (03/06/17) OTH CHEST CAGE OSTECTOMY (03/10/14) OTHER PLASTIC OPS TENDON (03/10/14) ROTATOR CUFF REPAIR (03/10/14)
[2023-06-23 05:43] LABS: BASOPHILS % (AUTO) 0.8 %; EOSINOPHILS # (AUTO) 0.2 10^3/uL (0.0-0.7); HCT - HEMATOCRIT 30.7 % (37.0-47.0); HGB - HEMOGLOBIN 10.2 g/dL (12.0-16.0); LYMPHOCYTES # (AUTO) 1.1 10^3/uL (1.5-3.5); LYMPHOCYTES % (AUTO) 23.3 %; MEAN CORPUSCULAR HEMOGLOBIN 30.5 pg (27.0-31.0); MEAN CORPUSCULAR HGB CONC 33.2 g/dL (32.0-36.0); MEAN CORPUSCULAR VOLUME 91.9 fL (81.0-99.0); MEAN PLATELET VOLUME 8.8 fL (7.9-10.8); MONOCYTES # (AUTO) 0.6 10^3/uL (0.0-1.0); MONOCYTES % (AUTO) 13.5 %; NEUTROPHILS # (AUTO) 2.7 10^3/uL (1.5-6.6); PLT - PLATELET COUNT 203 10^3/uL (130-450); RED BLOOD COUNT 3.34 10^6/uL (4.20-5.40); RED CELL DISTRIBUTION WIDTH 12.9 % (12.0-15.0); WHITE BLOOD COUNT 4.7 x10^3/uL (4.8-10.8)
[2023-06-23 05:58] LABS: CALCIUM 8.9 mg/dL (8.5-10.3); CREATININE 0.9 mg/dL (0.6-1.3); POTASSIUM 3.4 mmol/L (3.5-4.5)
[2023-06-23] MEDS: POTASSIUM CHLORIDE 20 MEQ TABLET PO ONE (08:45)
[2023-06-23] MEDS: LOSARTAN 50 MG TABLET PO SCH (08:49)
--- NOTE | 2023-06-23 10:18 | Discharge Plan ---
Discharge Plan Problem Reviewed?: Yes Disposition: Home, Self Care Condition: Good Prescriptions: Amox/Clav 875/125 [Augmentin 875/125 Tab] 1 tablet PO Q8H 7 Days #21 tablet Diet: Diabetic Activity Restrictions: No Restrictions Plan of Treatment: Insulin requirements were 0 in the hospital. We agreed to start with 10 units of long acting at home when she discharges and follow up with her Clinical Case Manager. No Smoking: If you smoke, Please STOP! Call for help.
--- NOTE | 2023-06-23 10:25 | DISCHARGE SUMMARY ---
Discharge Summary Admit Date: 06/21/23 Discharge Date: 06/23/23 Discharging Provider: Paulo Partida Code Status: Attempt Resuscitation Condition at Discharge: Good Discharge Disposition: 01 Home, Self Care - HOSPITAL COURSE Hospital Course: Patient is a 77-year-old female who presented to the ED due to complaints of lower abdominal cramping as well as bright red blood per rectum with multiple bloody bowel movements. Upon presentation to the ED a CT abdomen/pelvis was performed showing evidence of mild colitis/enteritis. Patient also had an initial hemoglobin of 13.4. Patient was admitted and started on IV antibiotics with Zosyn as well as IV fluids. Case was discussed with general surgery however her hemoglobin remained stable and was 10.2 on discharge and she had no further bloody bowel movements therefore no scopic intervention was required. Patient's symptoms improved significantly and she was able to tolerate diet. She subsequently discharged on oral Augmentin for 14 total days of treatment. Of note patient required no insulin while inpatient. We did discuss her insulin regimen at home. She uses 40 units of long-acting insulin. I advised her to decrease it to 10 units until she sees her hydroelectric component machinist to avoid hypoglycemia as her appetite improves. - ALLERGIES Allergies/Adverse Reactions: Allergies Allergy/AdvReac Type Severity Reaction Status Date / Time Iodinated Contrast Media Allergy Severe Palpitation Verified 06/21/23 00:21 [Iodinated Contrast Media - s IV Dye] minocycline Allergy Severe Photophobia Verified 06/21/23 00:21 shellfish derived Allergy Severe Palpitation Verified 06/21/23 00:21 s liraglutide [From Victoza] AdvReac Unknown Verified 06/21/23 00:21 Tape Allergy Intermediate Rash/Itchin Uncoded 06/21/23 00:21 g - MEDICATIONS Home Medications: Ambulatory Orders Medication Instructions Recorded Confirmed Albuterol Sulfate [Proair Hfa 2 puffs IH Q4H PRN 03/06/14 06/21/23 Inhaler] Levothyroxine [Synthroid] 125 mcg PO QDAC 03/06/14 06/21/23 Losartan [Cozaar] 100 mg PO DAILY 03/06/14 06/21/23 Metoprolol Succinate 75 mg PO HS 03/06/14 06/21/23 Omeprazole [PriLOSEC] 20 mg PO BID 03/06/14 06/21/23 Acyclovir [Zovirax] 800 mg ORAL TID PRN 03/10/14 06/21/23 Atorvastatin [Lipitor] 20 mg PO DAILY 10/17/17 06/21/23 Insulin Aspart [NovoLOG] See Rx Instructions .ROUTE .COMPLEX 12/26/22 06/21/23 Loratadine/Pseudoephedrine 1 tab PO DAILY PRN 12/26/22 06/21/23 [Claritin-D 12 Hour Tablet] Semaglutide [Ozempic] 2 mg SUBQ UD 12/26/22 06/21/23 Tizanidine HCl [Zanaflex] 2 mg PO DAILY PM PRN 12/26/22 06/21/23 Amlodipine Besylate [Norvasc] 10 mg PO DAILY 06/21/23 06/21/23 Fluticasone [Flonase] 1 sprays MILLI DAILY 06/21/23 06/21/23 Insulin Glargine,Hum.rec.anlog 40 units SUBQ DAILY 06/21/23 06/21/23 [Basaglar Kwikpen U-100] Propylene Glycol/Peg 400/Pf 1 drops EACHEYE BID 06/21/23 06/21/23 [Systane 0.3-0.4% Eye Drop] buPROPion HCL [Wellbutrin Xl] 300 mg PO DAILY 06/21/23 06/21/23 traMADol [Ultram] 100 mg PO HS PRN 06/21/23 06/21/23 Amox/Clav 875/125 [Augmentin 1 tablet PO Q8H 7 Days #21 tablet 06/23/23 875/125 Tab] - PHYSICAL EXAM AT DISCHARGE General Appearance: positive: No acute distress, Alert Respiratory: positive: No respiratory distress, Breath sounds nml. negative: Wheezes Cardiovascular: positive: Regular rate & rhythm, No murmur, No gallop Abdomen: positive: Non-tender, Nml bowel sounds, No distention - LABS Result Diagrams: 06/23/23 05:33 06/23/23 05:33 - FOLLOW UP Follow Up: Patient to follow-up with her PCP and hydroelectric component machinist. - TIME SPENT Time Spent in Discharge (Minutes): 30
[2023-06-23 12:24] VITALS: BP 156/76; O2SAT 100
--- NOTE | 2023-07-19 06:51 | HISTORY & PHYSICAL EXAMINATION ---
Chief Complaint - Chief Complaint Chief Complaint: gi bleeding, weakness, diarrhea History of Present Illness - History of Present Illness HPI Comment/Other: details obtained from ed provider d/t cart connection issues. brief h/p. pt presents with abd pain + brbrp earlier today. also reports having loose stools and feeling generally weak. denies any falls or abd trauma. no fevers or chills reported. no recent travel and no h/o gi bleeding reported. History - Past Medical History Cardiovascular: reports: Hypertension, High cholesterol Respiratory: reports: Asthma, Sleep apnea, CPAP use, Other Endocrine/Autoimmune: reports: Type 2 diabetes, HyPOthyroidism GI: reports: Ulcers, Hemorrhoids, Other HOSE CEMENTER: reports: None : reports: None HEENT: reports: None Psych: reports: Depression, Other Musculoskeletal: reports: Osteoarthritis, Other Derm: reports: None MRSA Hx?: No - Past Surgical History General: reports: Cholecystectomy, Appendectomy, Colonoscopy Ortho: reports: Knee replacement, Shoulder arthroplasty, Other /HOSE CEMENTER: reports: section, Hysterectomy HEENT: reports: Cataracts - POLST Patient has POLST: No Meds/Allgy - Home Medications Home Medications: Ambulatory Orders Medication Instructions Recorded Confirmed Albuterol Sulfate [Proair Hfa 2 puffs IH Q4H PRN 03/06/14 06/21/23 Inhaler] Levothyroxine [Synthroid] 125 mcg PO QDAC 03/06/14 06/21/23 Losartan [Cozaar] 100 mg PO DAILY 03/06/14 06/21/23 Metoprolol Succinate 75 mg PO HS 03/06/14 06/21/23 Omeprazole [PriLOSEC] 20 mg PO BID 03/06/14 06/21/23 Acyclovir [Zovirax] 800 mg ORAL TID PRN 03/10/14 06/21/23 Atorvastatin [Lipitor] 20 mg PO DAILY 10/17/17 06/21/23 Insulin Aspart [NovoLOG] See Rx Instructions .ROUTE .COMPLEX 12/26/22 06/21/23 Loratadine/Pseudoephedrine 1 tab PO DAILY PRN 12/26/22 06/21/23 [Claritin-D 12 Hour Tablet] Semaglutide [Ozempic] 2 mg SUBQ UD 12/26/22 06/21/23 Tizanidine HCl [Zanaflex] 2 mg PO DAILY PM PRN 12/26/22 06/21/23 Amlodipine Besylate [Norvasc] 10 mg PO DAILY 06/21/23 06/21/23 Fluticasone [Flonase] 1 sprays MILLI DAILY 06/21/23 06/21/23 Insulin Glargine,Hum.rec.anlog 40 units SUBQ DAILY 06/21/23 06/21/23 [Basaglar Kwikpen U-100] Propylene Glycol/Peg 400/Pf 1 drops EACHEYE BID 06/21/23 06/21/23 [Systane 0.3-0.4% Eye Drop] buPROPion HCL [Wellbutrin Xl] 300 mg PO DAILY 06/21/23 06/21/23 traMADol [Ultram] 100 mg PO HS PRN 06/21/23 06/21/23 Amox/Clav 875/125 [Augmentin 1 tablet PO Q8H 7 Days #21 tablet 06/23/23 875/125 Tab] - Allergies Allergies/Adverse Reactions: Allergies Allergy/AdvReac Type Severity Reaction Status Date / Time Iodinated Contrast Media Allergy Severe Palpitation Verified 06/21/23 00:21 [Iodinated Contrast Media - s IV Dye] minocycline Allergy Severe Photophobia Verified 06/21/23 00:21 shellfish derived Allergy Severe Palpitation Verified 06/21/23 00:21 s liraglutide [From Victoza] AdvReac Unknown Verified 06/21/23 00:21 Tape Allergy Intermediate Rash/Itchin Uncoded 06/21/23 00:21 g Review of Systems - Other Findings Other Findings: per ed charting Exam - Physical Exam Comments/Other: per ed charting Conclusion/Plan - Lab Results Fish Bones: 06/23/23 05:33 06/23/23 05:33 - Other Other Results/Comments: pt with - - gi bleeding lgib h/h not at levels requiring transfusion gen surg on case with plan for colonoscopy - colitis in setting of and contributory to above zosyn, ivf, supportive care - hypoglycemia likely exacerbated d/t above gi blood / fluid loses hypoglycemia protocol f/u labs, cultures, electrolytes further orders per clinical course
== END 2023-06-23 13:30 | disposition home or self-care (01) ==
LOC: ED 23:52 → MS2 06-21 06:03
PROVIDERS: ADMIT Student in an Organized Health Care Education/Training Program; ATTEND Student in an Organized Health Care Education/Training Program
DX: K52.9 Noninfective gastroenteritis and colitis, unspecified (principal); K92.1 Melena; E11.649 Type 2 diabetes mellitus with hypoglycemia without coma; R53.1 Weakness; I10 Essential (primary) hypertension; G47.30 Sleep apnea, unspecified; E03.9 Hypothyroidism, unspecified; J45.909 Unspecified asthma, uncomplicated; Z79.4 Long term (current) use of insulin
CPT/HCPCS: 36415; 74177; 76770; 80048; 80053; 83690; 85014; 85018; 85025; 85610; 85730; 87493; 87507; 96365; 96366; 96367; 96375; 96376; 99284; 99285; A9270; G0378; J1200; J7120; Q9967

== ENCOUNTER 2023-06-28 12:56 | Outpatient (CLI) | payer MEDICARE, BC ==
[2023-06-28 15:20] LABS: THYROID STIMULATING HORMONE 0.47 uIU/mL (0.34-5.60)
[2023-06-28 15:31] LABS: CREATININE,URINE 150.9 mg/dL; MICROALBUM/CREATININE RATIO,UR 74.9 ug/mg (<30.0); MICROALBUMIN,URINE 11.3 mg/dL
[2023-06-28 15:32] LABS: ALBUMIN 4.2 g/dL (3.2-5.5); ALBUMIN/GLOBULIN RATIO 1.5 (1.0-2.2); ALKALINE PHOSPHATASE 71 IU/L (42-121); ALT ALANINE AMINOTRANSFERASE 27 IU/L (10-60); AST ASPARTATE AMINOTRANSFERASE 21 IU/L (10-42); BILIRUBIN,TOTAL 0.4 mg/dL (0.2-1.0); BUN - BLOOD UREA NITROGEN 16 mg/dL (6-20); CALCIUM 10.1 mg/dL (8.5-10.3); CARBON DIOXIDE - CO2 21 mmol/L (21-32); CHLORIDE 104 mmol/L (101-111); CHOL/HDL RATIO 2.5 (<4.4); CHOLESTEROL 158 mg/dL; GFR - MDRD 54 (>89); GLUCOSE 143 mg/dL (74-104); HDL CHOLESTEROL 63 mg/dL; LDL CHOLESTEROL,CALCULATED 69 mg/dL; LDL/HDL RATIO 1.1 (<4.4); POTASSIUM 4.1 mmol/L (3.5-4.5); SODIUM 134 mmol/L (135-145); TRIGLYCERIDES 132 mg/dL (48-352); VLDL CHOLESTEROL 26 mg/dL
[2023-06-28 20:24] LABS: ESTIMATED AVERAGE GLUCOSE 128 mg/dL (70-100); HEMOGLOBIN A1c% 6.1 % (4.27-6.07)
== END 2023-06-28 12:57 | disposition home or self-care (01) ==
LOC: LAB.S 12:56
PROVIDERS: ATTEND Family Medicine
DX: E78.5 Hyperlipidemia, unspecified (principal); E11.40 Type 2 diabetes mellitus with diabetic neuropathy, unspecified; Z79.4 Long term (current) use of insulin; Z51.81 Encounter for therapeutic drug level monitoring; I10 Essential (primary) hypertension
CPT/HCPCS: 36415; 80053; 80061; 82043; 82570; 82607; 82746; 83036; 83721; 84443

== ENCOUNTER 2023-12-07 10:53 | Outpatient (CLI) | payer MEDICARE, BC ==
[2023-12-07 21:57] LABS: ESTIMATED AVERAGE GLUCOSE 143 mg/dL (70-100); HEMOGLOBIN A1c% 6.6 % (4.27-6.07)
== END 2023-12-07 10:54 | disposition home or self-care (01) ==
LOC: LAB.S 10:53
PROVIDERS: ATTEND Internal Medicine Endocrinology, Diabetes & Metabolism
DX: E11.65 Type 2 diabetes mellitus with hyperglycemia (principal)
CPT/HCPCS: 36415; 83036